=== PATIENT | female | born 1985 | race Caucasian/White ===

== ENCOUNTER 2018-10-28 22:07 | Emergency (ER) | payer BC ==
[~2018-10-28] VITALS: Ht 165.1 cm; Wt 128.8 kg
[~2018-10-28 22:07] MED LIST: HYDR-3720 PO
--- OUTSIDE RECORDS SUMMARY | 2018-10-28 22:12 | XMS REPORT | Clinical Summary ---
Author Author [facility] Organization [facility] Address Unknown Phone Unavailable Care Team Providers Care Wire Straightener Name Role Phone TroyXiomara NELL PCP Source Comments Some departments are not documenting in the electronic medical record. If you d o not see the information that you expected, contact [facility] Information [facility] Information Management department at [phone] for further assistan ce in locating additional records.[facility] Allergies Comments Active Allergy Reactions Severity Noted Date Zolpidem VOMITING, High 12/31/2016 DIZZINESS, HALLUCINATION S Oxycodone-Acetaminophen VOMITING, High 12/31/2016 DIZZINESS, HALLUCINATION S Medications End Date Status Medication Sig Dispensed Refills Start Date Active naproxen (NAPROSYN) 500 Take 1 tablet 60 tablet 4 mg tablet by mouth 7 twice daily with meals. Take with food. Active diclofenac(+) (VOLTAREN) Apply 4 g 300 g 4 1 % topical gel topically to 7 affected area three times daily. Active metFORMIN (GLUCOPHAGE) Take 500 mg 0 500 mg tablet by mouth twice daily with meals. Active dulaglutide (TRULICITY) Inject 0.75 0 0.75 mg/0.5 mL injection mg under the pen skin every 7 days. Active ascorbate calcium Take by 0 (VITAMIN C PO) mouth. Active diclofenac (VOLTAREN) 1 % Apply four g 300 g 3 topical gel topically to 9 affected area four times daily. Active HYDROcodone/acetaminophen Take one 60 tablet 0 (NORCO) 5/325 mg tablet tablet by 9 mouth every 12 hours as needed for Pain Max 2 tablets daily 10/06/2018 Discontinued amoxicillin (AMOXIL) 500 Take 500 mg 0 mg capsule by mouth every 8 hours. Active Problems Problem Noted Date Pars defect of lumbar spine 06/17/2017 Chronic midline low back pain 06/17/2017 Encounters Care Team Description Date Type Specialty Rambo Du MD Cervical spondylosis without myelopathy (Primary Dx); Cervical pain; Spondylosis of lumbosacral region without myelopathy or radiculopathy 10/20/2018 Procedure visit Anesthesia Pain Rambo Du MD 10/20/2018 Hospital Radiology Encounter Rambo Du MD Post Procedure 10/08/2018 Telephone Anesthesia Pain Rambo Du MD Cervical spondylosis without myelopathy (Primary Dx); Spondylosis of lumbosacral region without myelopathy or radiculopathy 10/06/2018 Procedure visit Anesthesia Pain Rambo Du MD 10/06/2018 Hospital Radiology Encounter Rambo Du MD Canceled (Patient-Personal) 09/22/2018 Hospital Radiology Encounter Rambo Du MD Cervical spondylosis without myelopathy (Primary Dx); Spondylosis of lumbosacral region without myelopathy or radiculopathy 08/26/2018 Office Visit Anesthesia Pain from Last 3 Months Family History Medical History Relation Name Comments Heart Disease Brother Thyroid Disease Brother Heart Disease Father Hypertension Father Kidney Failure Father Stroke Father Cancer Mother Heart Disease Mother Hypertension Mother Neuropathy Mother Stroke Mother Heart Disease Sister Relation Name Status Comments Brother Alive Daughter Alive Daughter Alive Father Alive Mother Alive Sister Alive Sister Alive Social History Date Tobacco Use Types Packs/Day Years Used Never Smoker Smokeless Tobacco: Never Used Drinks/Week oz/Week Comments Alcohol Use Yes Sex Assigned at Date Recorded Not on file Industry Job Start Date Occupation Not on file Not on file Not on file Travel End Travel History Travel Start No recent travel history available. Last Filed Vital Signs Reading Time Taken Comments Vital Sign 152/86 10/20/2018 12:12 PM CDT Blood Pressure 56 10/20/2018 10:47 AM CDT Pulse 36.7 C (98 F) 10/20/2018 10:47 AM CDT Temperature 16 10/20/2018 10:47 AM CDT Respiratory Rate 98% 10/20/2018 12:12 PM CDT Oxygen Saturation - - Inhaled Oxygen Concentration 127 kg (280 lb) 10/06/2018 9:32 AM CDT Weight 165.1 cm (5' 5") 10/06/2018 9:32 AM CDT Height 46.59 10/06/2018 9:32 AM CDT Body Mass Index Plan of Treatment Health Maintenance Due Date Last Done Comments PHYSICAL (COMPREHENSIVE) 1994 EXAM HIV SCREENING 2002 DTAP/TDAP VACCINES (1 - 2005 Tdap) CERVICAL CANCER SCREENING 2017 INFLUENZA VACCINE 02/01/2019 Procedures Comments Procedure Name Priority Date/Time Associated Diagnosis FLUORO GUIDANCE FOR SPINE Routine 10/20/2018 Cervical neuralgia INJ RAD 11:49 AM CDT FL RPB BILATERAL MACHINE REPAIRER MAINTENANCE Routine 10/20/2018 Cervical spondylosis REVIEW 10:45 AM CDT without myelopathy Cervical pain Spondylosis of lumbosacral region without myelopathy or radiculopathy FL NJX DX/THER AGT PVRT Routine 10/20/2018 Cervical spondylosis FACET JT CRV/THRC 3+ 10:45 AM CDT without myelopathy LEVEL Cervical pain Spondylosis of lumbosacral region without myelopathy or radiculopathy FL NJX DX/THER AGT PVRT Routine 10/20/2018 Cervical spondylosis FACET JT CRV/THRC 2ND 10:45 AM CDT without myelopathy LEVEL Cervical pain Spondylosis of lumbosacral region without myelopathy or radiculopathy FL NJX DX/THER AGT PVRT Routine 10/20/2018 Cervical spondylosis FACET JT CRV/THRC 1 LEVEL 10:45 AM CDT without myelopathy Cervical pain Spondylosis of lumbosacral region without myelopathy or radiculopathy FLUORO GUIDANCE FOR SPINE Routine 10/06/2018 Cervical pain INJ RAD 10:39 AM CDT FL RPB BILATERAL MACHINE REPAIRER MAINTENANCE Routine 10/06/2018 Cervical spondylosis REVIEW 9:30 AM CDT without myelopathy Spondylosis of lumbosacral region without myelopathy or radiculopathy FL NJX DX/THER AGT PVRT Routine 10/06/2018 Cervical spondylosis FACET JT CRV/THRC 2ND 9:30 AM CDT without myelopathy LEVEL Spondylosis of lumbosacral region without myelopathy or radiculopathy FL NJX DX/THER AGT PVRT Routine 10/06/2018 Cervical spondylosis FACET JT CRV/THRC 1 LEVEL 9:30 AM CDT without myelopathy Spondylosis of lumbosacral region without myelopathy or radiculopathy from Last 3 Months Results * FLUORO GUIDANCE FOR SPINE INJ RAD (10/20/2018 11:49 AM CDT) Only the most recent of 2 results within the time period is included. Specimen Narrative Performed At This order has been auto finalized and does not contain a result. [facility] Performing Organization Address City/State/Zipcode Phone Number [facility] * MBB/Facet CRV/THRC (10/20/2018 10:45 AM CDT) Narrative Performed At Rambo Du MD 10/21/2018 12:44 PM OTHER OUTSIDE LAB MBB/Facet CRV/THRC Procedure: medial branch block Laterality: bilateral Location: cervical - C4-5, C6-7 and C5-6 Consent: Consent obtained: written Consent given by: patient [place] Protocol: Relevant documents: relevant documents present and verified Test results: test results available and properly labeled Imaging studies: imaging studies available Required items: required blood products, implants, devices, and special equipment available Site marked: the operative site was marked Patient identity confirmed: Patient identify confirmed verbally with patient. Time out: Immediately prior to procedure a "time out" was called to verify the correct patient, procedure, equipment, academic support specialist and site/side marked as required Procedures Details: Prep: chlorhexidine Estimated Blood Loss: minimal Specimens: none Number of Levels: 3 Guidance: fluoroscopy Needle size: 25 G Injection procedure: Negative aspiration for blood Patient tolerance: Patient tolerated the procedure well with no immediate complications. Pressure was applied, and hemostasis was accomplished. Outcome: Pain improved Comments: Bupivacaine .25% 1 ml was injected at each location Performing Organization Address City/State/Zipcode Phone Number OTHER OUTSIDE LAB * MBB/Facet CRV/THRC (10/06/2018 9:30 AM CDT) Narrative Performed At Rambo Du MD 10/06/20181:24 PM OTHER OUTSIDE LAB MBB/Facet CRV/THRC Procedure: medial branch block Laterality: bilateral Location: cervical - C4-5, C5-6 and C6-7 Consent: Consent obtained: written Consent given by: patient [place] Protocol: Relevant documents: relevant documents present and verified Test results: test results available and properly labeled Imaging studies: imaging studies available Required items: required blood products, implants, devices, and special equipment available Site marked: the operative site was marked Patient identity confirmed: Patient identify confirmed verbally with patient. Time out: Immediately prior to procedure a "time out" was called to verify the correct patient, procedure, equipment, academic support specialist and site/side marked as required Procedures Details: Prep: chlorhexidine Estimated Blood Loss: minimal Specimens: none Number of Levels: 2 Guidance: fluoroscopy Needle size: 25 G Injection procedure: Negative aspiration for blood Patient tolerance: Patient tolerated the procedure well with no immediate complications. Pressure was applied, and hemostasis was accomplished. Outcome: Pain improved Comments: Bupivacaine .25% 1 ml was injected at each location Performing Organization Address City/State/Zipcode Phone Number OTHER OUTSIDE LAB from Last 3 Months Insurance Type Payer Benefit Subscriber ID Effective Phone Address Plan / Dates Group PPO BCBS BCBS xxxxxxxxxxxx 2015-P OUT OF resent [facility] PPO BCBS [place] xxxxxxxxxxxx 2016-P [facility] CARE resent BLUE Advance Directives Patient Gas Well Pumper Explanation Type Date Recorded Advance 12/31/2016 2:19 PM Directive/DPOA
--- OUTSIDE RECORDS SUMMARY | 2018-10-28 22:12 | XMS REPORT | Encounter Summary ---
Author Author [facility] Organization [facility] Address Unknown Phone Unavailable Care Team Providers Care Shade Hanger Name Role Phone Xiomara Simmons NELL PCP Encounter Details Care Team Description Date Type Department Rambo Du MD [address] [place], [place] [id number] 10/20/2018 Hospital [facility] Encounter Health System [address] [address] Social History Date Tobacco Use Types Packs/Day Years Used Never Smoker Smokeless Tobacco: Never Used Drinks/Week oz/Week Comments Alcohol Use Yes Sex Assigned at Date Recorded Not on file Industry Job Start Date Occupation Not on file Not on file Not on file Travel End Travel History Travel Start No recent travel history available. documented as of this encounter Functional Status Date of Assessment Functional Status Response 10/20/2018 Does the patient have a hearing impairment: No 10/20/2018 Does the patient have a visual impairment: Yes 10/20/2018 Does the patient have impaired ambulation: No 10/20/2018 Does the patient have an activity of daily living No (ADL) impairment: 10/20/2018 Does the patient have an instrumental activity of No daily living (IADL) impairment: Date of Assessment Cognitive Status Response 10/20/2018 Does the patient have a cognitive impairment: No documented as of this encounter Medications at Time of Discharge Start Date End Date Medication Sig Dispensed Refills ascorbate calcium Take by 0 (VITAMIN C PO) mouth. 06/28/2018 diclofenac (VOLTAREN) 1 % Apply four g 300 g 3 topical gel topically to affected area four times daily. 03/10/2017 diclofenac(+) (VOLTAREN) Apply 4 g 300 g 4 1 % topical gel topically to affected area three times daily. dulaglutide (TRULICITY) Inject 0.75 0 0.75 mg/0.5 mL injection mg under the pen skin every 7 days. 08/26/2018 HYDROcodone/acetaminophen Take one 60 tablet 0 (NORCO) 5/325 mg tablet tablet by mouth every 12 hours as needed for Pain Max 2 tablets daily metFORMIN (GLUCOPHAGE) Take 500 mg 0 500 mg tablet by mouth twice daily with meals. 03/10/2017 naproxen (NAPROSYN) 500 Take 1 tablet 60 tablet 4 mg tablet by mouth twice daily with meals. Take with food. documented as of this encounter Plan of Treatment Not on filedocumented as of this encounter Procedures Comments Procedure Name Priority Date/Time Associated Diagnosis FLUORO GUIDANCE FOR SPINE Routine 10/20/2018 Cervical neuralgia INJ RAD 11:49 AM CDT documented in this encounter Results * FLUORO GUIDANCE FOR SPINE INJ RAD (10/20/2018 11:49 AM CDT) Specimen Narrative Performed At This order has been auto finalized and does not contain a result. [facility] Performing Organization Address City/State/Zipcode Phone Number [facility] documented in this encounter Visit Diagnoses Diagnosis Cervical neuralgia Brachial neuritis or radiculitis nos documented in this encounter
--- OUTSIDE RECORDS SUMMARY | 2018-10-28 22:13 | XMS REPORT | Encounter Summary ---
Author Author [facility] Organization [facility] Address Unknown Phone Unavailable Care Team Providers Care Nail Feeder Name Role Phone Madison Pantoja MD PCP Reason for Referral * Pain Authorization (Routine) Referred By Contact Referred To Contact Status Reason Specialty Diagnoses / Procedures Rambo Du MD [address] [place] [address] Bh Spn Pain Proc [address] [address] New Request Anesthesia Pain Diagnoses Spondylosis of lumbosacral region without myelopathy or radiculopathy Lumbar radicular pain Degeneration of lumbar or lumbosacral intervertebral disc P rocedures [facility] SPINE INJECT INTERLAM CRV/THRC Reason for Visit * Reason Comments Pain NECK AND LEFT LEG Pain Pain Encounter Details Care Team Description Date Type Department Rambo Du MD [address] [place] [address] [phone] Spondylosis of lumbosacral region without myelopathy or radiculopathy (Primary Dx); Lumbar radicular pain; Degeneration of lumbar or lumbosacral intervertebral disc 06/28/2018 Office Visit [facility] [address] [id number] Social History Date Tobacco Use Types Packs/Day Years Used Never Smoker Smokeless Tobacco: Never Used Drinks/Week oz/Week Comments Alcohol Use Yes Sex Assigned at Date Recorded Not on file Industry Job Start Date Occupation Not on file Not on file Not on file Travel End Travel History Travel Start No recent travel history available. documented as of this encounter Last Filed Vital Signs Reading Time Taken Comments Vital Sign 147/95 06/28/2018 3:44 PM SEXUAL ASSAULT COUNSELOR Blood Pressure 99 06/28/2018 3:44 PM SEXUAL ASSAULT COUNSELOR Pulse - - Temperature - - Respiratory Rate - - Oxygen Saturation - - Inhaled Oxygen Concentration 129.3 kg (285 lb) 06/28/2018 3:44 PM SEXUAL ASSAULT COUNSELOR Weight 165.1 cm (5' 5") 06/28/2018 3:44 PM SEXUAL ASSAULT COUNSELOR Height 47.43 06/28/2018 3:44 PM SEXUAL ASSAULT COUNSELOR Body Mass Index documented in this encounter Functional Status Date of Assessment Functional Status Response 06/28/2018 Does the patient have a hearing impairment: Yes 06/28/2018 Does the patient have a visual impairment: Yes 06/28/2018 Does the patient have impaired ambulation: Yes 06/28/2018 Does the patient have an activity of daily living No (ADL) impairment: 06/28/2018 Does the patient have an instrumental activity of No daily living (IADL) impairment: Date of Assessment Cognitive Status Response 06/28/2018 Does the patient have a cognitive impairment: No documented as of this encounter Patient Instructions * Patient Instructions* Ines Anthony RN - 06/28/2018 3:30 PM SEXUAL ASSAULT COUNSELOR It was nice to see you today. Thank you for choosing to visit our clinic. Your time is important and if you had to wait today, we do apologize. Our goal i s to run exactly on time; however, on occasion, we get behind in clinic due to u nexpected patient issues. Thank you for your patience. General Instructions: How to reach me: Please send a [facility] message to the Spine Center or leave a voicemail for Dr. Du's nurses, Alexis or Allyssa, at [phone]. How to get a medication refill: Please use the [facility] Refill request or cont act your pharmacy directly to request medication refills. Please allow 72 busine ss hours for request to be completed. How to receive your test results: If you have signed up for [facility], you will receive your test results and messages from me this way. Otherwise, you will get a phone call or letter. If you are expecting results and have not heard from my office within 2 weeks of your testing, please send a [employer] message or call my office. Scheduling: Our scheduling phone number is [phone]. Appointment Reminders on your cell phone: Make sure we have your cell phone n andrew, and Text [facility] to [phone]. Support for many chronic illnesses is available through [employer]: turnin [email or web address] or 984-061-6671. For questions on nights, weekends or holidays, call the Hand Zipper Trimmer at , and ask for the doctor cellular phone repairer for Anesthesia Pain Management. Again, thank you for coming in today. Epidural Steroid Injection: Your Experience For certain types of back or neck pain, your doctor may suggest an epidural inje ction.During this procedure, medicine is injected deep into your neck or back near your spine. The injection helps the doctor find the source of your pain. It can also help relieve your pain and sorenesseither temporarily or more perman ently. However, it can be associated with serious complications. The injectioncan be done inyour doctor's office, but it is sometimesdone i [facility] care system or surgery center. Youll be asked to fill out some forms, includ ing a consent form. You may also be examined. Before you agree to this procedure, ask these questions: Why do I need this procedure? Are there any alternatives? How many times have you done this procedure? What are the complications? When will I see the results? Will the drug in this injection interact with other medicines I am taking? If you don't feel comfortable asking these questions, ask a family member or fri end to come with you to ask them. The answers are critical to your health and sa fety. Getting ready for your treatment Before treatment, tell your doctor what medicines you take. This includes asp irin. Ask whether you should stop taking any of them before treatment. Tell your doctor if you are or allergic to any medicines. Follow any directions you are given for not eating or drinking before the pro cedure. If asked, bring X-rays, MRIs, or other tests with you to your treatment. During the procedure You may be given medicine to help you relax. You will lie on an exam table on yo ur stomach or side, or sit in a chair. Stay as still as you can. During your gulshan atment: The skin over the injection site is cleaned. A pain medicine (local anestheti c) numbs the skin. X-ray imaging (fluoroscopy) may be used to help your healthcare provider see where the injection needs to go. A contrast dye may be injected into the region to help get a better image. The epidural injection is given. It may contain a local anesthetic to numb t he region, medicines to ease inflammation (steroids), or both. Possible risks and complications Infection Spinal headaches Bleeding Nerve damage Spinal cord damage Prolonged increase in pain Other more serious complications have been reported. Talk to your doctor about y our risks. After the procedure Most often, you can go home shortly after the procedure, generally in about an h our. When the local anesthetic wears off, your neck may feel more sore than usua l. This is normal. Rest and put ice on the area for 20 minutes a few times durin g the first day. The steroids most often start to work within a few days. Ask yo ur provider when its OK to return to your job. When to call your healthcare provider Call your provider right away if you have: Fever Nausea Severe headaches Increased arm weakness or numbness Problems swallowing Severe increase in pain Date Last Reviewed: 08/02/201719994829-3813 [employer]. [address] [place] [address] 7. All rights reserved. This information is not intended as a substitute for pro fessional medical care. Always follow your healthcare professional's instruction s. AL ASSAULT COUNSELOR documented in this encounter Progress Notes * Rambo Du MD - 06/28/2018 3:30 PM SEXUAL ASSAULT COUNSELOR SPINE CENTER CLINIC NOTE SUBJECTIVE: Ms. Ivory presents in follow-up for ongoing care regarding back nelson n. Her main complaint is pain at the cervicothoracic junction in the periscapul ar region and she describes it as intermittently sharp and dull. Her lumbar nelson n is much improved since undergoing radiofrequency ablation. Walking standing b ending exacerbate the pain and pain is improved with rest. Review of Systems Constitutional: Negative. HENT: Positive for dental problem, ear pain and hearing loss. Eyes: Negative. Respiratory: Positive for chest tightness. Cardiovascular: Negative. Gastrointestinal: Positive for abdominal pain. Endocrine: Negative. Genitourinary: Negative. Musculoskeletal: Positive for back pain and neck pain. Skin: Negative. Allergic/Immunologic: Negative. Neurological: Negative. Hematological: Negative. Psychiatric/Behavioral: Negative. All other systems reviewed and are negative. Current Outpatient Medications: amoxicillin (AMOXIL) 500 mg capsule, Take 500 mg by mouth every 8 hours., D isp: , Rfl: ascorbate calcium (VITAMIN C PO), Take by mouth., Disp: , Rfl: diclofenac (VOLTAREN) 1 % topical gel, Apply four g topically to affected a christine four times daily., Disp: 300 g, Rfl: 3 diclofenac(+) (VOLTAREN) 1 % topical gel, Apply 4 g topically to affected a christine three times daily., Disp: 300 g, Rfl: 4 dulaglutide (TRULICITY) 0.75 mg/0.5 mL injection pen, Inject 0.75 mg under the skin every 7 days., Disp: , Rfl: HYDROcodone/acetaminophen (NORCO) 5/325 mg tablet, Take one tablet by mouth every 12 hours as needed for Pain Max 2 tablets daily, Disp: 60 tablet, Rfl: 0 metFORMIN (GLUCOPHAGE) 500 mg tablet, Take 500 mg by mouth twice daily with meals., Disp: , Rfl: naproxen (NAPROSYN) 500 mg tablet, Take 1 tablet by mouth twice daily with meals. Take with food., Disp: 60 tablet, Rfl: 4 Allergies Allergen Reactions Ambien [Zolpidem] VOMITING, DIZZINESS and HALLUCINATIONS Percocet [Oxycodone-Acetaminophen] VOMITING, DIZZINESS and HALLUCINATIONS Physical Exam Vitals: 06/28/18 1544 BP: (!) 147/95 Pulse: 99 Weight: 129.3 kg (285 lb) Height: 165.1 cm (65") Oswestry Total Score:: 14 Pain Score: Six Body mass index is 47.43 kg/m. General: Alert and oriented, very pleasant female. HEENT showed extraocular muscles were intact and no other abnormalities. Unlabored breathing. Regular rate and rhythm on CV exam. 5/5 strength in bilateral upper and lower extremities. Sensation is intact to light touch and equal in the upper and lower extremities. There is bilateral cervico-thoracic tenderness to palpation IMPRESSION: 1. Spondylosis of lumbosacral region without myelopathy or radiculopathy 2. Lumbar radicular pain 3. Degeneration of lumbar or lumbosacral intervertebral disc PLAN: Ms. Ivory will trial child care attendant school and if pain is not improved we kendell l consider a epidural steroid injection in the upper thoracic region. AL ASSAULT COUNSELOR documented in this encounter Plan of Treatment Order Schedule Name Type Priority Associated Diagnoses 2 Occurrences starting 06/28/2018 until 09/25/2018 [facility] SPINE INJECT Procedures Routine Spondylosis of INTERLAM CRV/THRC lumbosacral region without myelopathy or radiculopathy Lumbar radicular pain Degeneration of lumbar or lumbosacral intervertebral disc documented as of this encounter Visit Diagnoses Diagnosis Spondylosis of lumbosacral region without myelopathy or radiculopathy - Primary Lumbosacral spondylosis without myelopathy Lumbar radicular pain Thoracic or lumbosacral neuritis or radiculitis, unspecified Degeneration of lumbar or lumbosacral intervertebral disc documented in this encounter
--- OUTSIDE RECORDS SUMMARY | 2018-10-28 22:13 | XMS REPORT | Encounter Summary ---
Author Author [facility] Organization [facility] Address Unknown Phone Unavailable Care Team Providers Care Cnc Operator Name Role Phone Xiomara Simmons NELL PCP Reason for Visit * Reason Comments Post Procedure Encounter Details Care Team Description Date Type Department Rambo Du MD [address] [place], [place] [id number] Post Procedure 10/08/2018 Telephone [facility] [address] [id number] Social History Date Tobacco Use Types Packs/Day [...] Status Date of Assessment Functional Status Response 10/06/2018 Does the patient have a hearing impairment: No 10/06/2018 Does the patient have a visual impairment: Yes 10/06/2018 Does the patient have impaired ambulation: No 10/06/2018 Does the patient have an activity of daily living No (ADL) impairment: 08/26/2018 Does the patient have an instrumental activity of No daily living (IADL) impairment: Date of Assessment Cognitive Status Response 10/06/2018 Does the patient have a cognitive impairment: No documented as of this encounter Miscellaneous Notes * Telephone Encounter - Alexis Natarajan RN - 10/08/2018 9:22 AM CDT mbb 6.5.19 OFFERED MORE THAN 80% relief from pain for over 4 hr MBB #2 scheduled documented in this encounter Plan of Treatment Not on filedocumented as of this encounter Visit Diagnoses Not on filedocumented in this encounter
--- OUTSIDE RECORDS SUMMARY | 2018-10-28 22:13 | XMS REPORT | Encounter Summary ---
Author Author [facility] Organization [facility] Address Unknown Phone Unavailable Care Team Providers Care Online Journalist Name Role Phone EveliosangmiguelXiomara NELL PCP Reason for Referral * Pain Authorization (Routine) Referred By Contact Referred To Contact Status Reason Specialty Diagnoses / Procedures Rambo Du MD [address] [place] [address] [facility] [address] [address] No Auth Needed Anesthesia Pain Diagnoses Cervical spondylosis without myelopathy Spondylosis of lumbosacral region without myelopathy or radiculopathy P rocedures [facility] AMB SPINE INJECT PVRT FACET MBB JT CRV/THOR Reason for Visit * Reason Comments Pain * Pain Authorization (Routine) Referred By Contact Referred To Contact Status Reason Specialty Diagnoses / Procedures Rambo Du MD [address] [place] [address] [facility] Proc [address] [address] No Auth Needed Anesthesia Pain Diagnoses Cervical spondylosis without myelopathy Spondylosis of lumbosacral region without myelopathy or radiculopathy P rocedures [facility] AMB SPINE INJECT PVRT FACET MBB JT CRV/THOR Encounter Details Care Team Description Date Type Department Rambo Du MD 4000 [facility] [place] [address] [phone] Cervical spondylosis without myelopathy (Primary Dx); Spondylosis of lumbosacral region without myelopathy or radiculopathy 10/06/2018 Procedure visit [facility] [address] [address] Social History Date Tobacco Use Types Packs/Day [...] Signs Reading Time Taken Comments Vital Sign 157/100 10/06/2018 11:02 AM CDT Blood Pressure 94 10/06/2018 9:32 AM CDT Pulse 36.6 C (97.8 F) 10/06/2018 9:32 AM CDT Temperature 16 10/06/2018 9:32 AM CDT Respiratory Rate 97% 10/06/2018 11:02 AM CDT Oxygen Saturation - - Inhaled Oxygen Concentration 127 kg (280 lb) 10/06/2018 9:32 AM CDT Weight 165.1 cm (5' 5") 10/06/2018 9:32 AM CDT Height 46.59 10/06/2018 9:32 AM CDT Body Mass Index documented in this encounter [...] this encounter Patient Instructions * Patient Instructions* Virginia Rosales RN - 10/06/2018 9:30 AM CDT Discharge Instructions for Medial Branch Block Important information following your procedure today: You may drive today This injection is for diagnostic purposes, it is a test. Only short term results are expected. 1. Though the procedure is generally safe and complications are rare, we do ask that you be aware of any of the following: ? Any swelling, persistent redness, new bleeding, or drainage from the site of t he injection. ? You should not experience a severe headache. ? You should not run a fever over 101 F. ? New onset of sharp, severe back & or neck pain. ? New onset of upper or lower extremity numbness or weakness. ? New difficulty controlling bowel or bladder function after the injection. ? New shortness of breath. If any of these occur, please call to report this occurrence to a nurse at . If you are calling after 4:00 p.m. or on weekends or holidays please ca [phone] and ask to have the resident physician director translational for the physician paged or go to your local emergency room. 2. You may experience soreness at the injection site. Ice can be applied at 20 m inute intervals. Avoid application of direct heat, hot showers or hot tubs today . 3. Patients taking a daily blood thinner can resume their regular dose this even ing. 4. It is important that you take all medications ordered by your pain physician. Taking medication as ordered is an important part of your pain care plan. If you cannot continue the medication plan, please notify the physician. 5. Remain active today. Do the activities that would normally cause you pain. 6. It is important for you to keep track of the results of this test on paper. ? Did you get relief? ? Percentage of relief? ? How long did it last? Call back to report the results to a nurse on THURSDAY at [phone] . Use not es that you kept when giving your report. You may have to leave a message and a nurse will contact you to help you determine if you are a candidate for the Radi ofrequency Ablation Procedure. The following medications were used: Lidocaine and Bupivicaine PAIN DIARY Please report pain on 0-10 scale for each hour listed following discharge. (0=N o pain; 5=Moderate pain; 10=Worst pain of your life) TIME DAY OF PROCEDURE LOCATION OF PAIN Pain Level Prior to Procedure 9:00 AM 10:00 11:00 12:00 (NOON) 1:00 PM 2:00 3:00 4:00 5:00 6:00 7:00 8:00 9:00 10:00 11:00 PM 12:00 AM (MIDNIGHT) If you are unable to keep your upcoming appointment, please notify the Spine [address] dye house wheel operator at [phone] at least 24 hours in advance. documented in this encounter Progress Notes * Brigette Bernard RN - 10/06/2018 9:30 AM CDT Pain Procedure Plan Of Care Risk of injury related to procedure Patient identification, allergies verified, fall precautions implemented Risk of injury and impaired skin integrity Positioning devices applied as appropriate for procedure, patient transported wi staff assistance Management of Pain Pain assessment completed on arrival, PAR scoring following procedure and at dis charge, sedation administered as ordered, patient positioned for comfort Risk of anxiety related to procedure and disease process Patient education on procedure and expectations, provide coping support to patie nt, provide relaxation techniques Outcomes: The patient is free of injury during and following their procedure. Skin is intact and free of bruising. The patients pain is managed during their stay. Alleviation of patient anxiety exhibited. * Rambo Du MD - 10/06/2018 9:30 AM CDT [facility]ENTER INTERVENTIONAL PAIN PROCEDURE HISTORY AND PHYSICAL Chief Complaint Patient presents with Neck - Pain HISTORY OF PRESENT ILLNESS: Axial neck pain Worse with head movements, especially lateral rotation Makes it hard to work at her computer Minimal radiation Medical History: Diagnosis Date Essential hypertension, benign Joint pain digenarative disk disease Nausea Surgical History: Procedure Laterality Date HX HERNIA REPAIR 2015 SECTION 2011, 2014 X2 CHOLECYSTECTOMY HX TONSILLECTOMY family history includes Cancer in her mother; Heart Disease in her brother, fath er, mother, and sister; Hypertension in her father and mother; Kidney Failure in her father; Neuropathy in her mother; Stroke in her father and mother; Thyroid Disease in her brother. Social History Socioeconomic History Marital status: Spouse name: Not on file Number of children: Not on file Years of education: Not on file Highest education level: Not on file Occupational History Not on file Tobacco Use Smoking status: Never Smoker Smokeless tobacco: Never Used Substance and Sexual Activity Alcohol use: Yes Drug use: No Sexual activity: Not on file Other Topics Concern Not on file Social History Narrative Not on file Allergies Allergen Reactions Ambien [Zolpidem] VOMITING, DIZZINESS and HALLUCINATIONS Percocet [Oxycodone-Acetaminophen] VOMITING, DIZZINESS and HALLUCINATIONS Vitals: 10/06/18 0932 Pulse: 94 SpO2: 99% Weight: 127 kg (280 lb) Height: 165.1 cm (65") REVIEW OF SYSTEMS: 10 point ROS obtained and negative except neck pain PHYSICAL EXAM: General: Alert, cooperative, no distress Head: Normocephalic, atraumatic Lungs: Unlabored respirations Heart: Well perfused Abdomen: Non-distended Musculoskeletal: Moves all extremities, ttp cervical spine Neurological: Grossly intact IMPRESSION: 1. Cervical spondylosis without myelopathy PLAN: Other bilat C4-7 MBBs I was present for garcia elements of the history and physical and agree with the ab ove note. Thank you for the opportunity to participate in the care of Jennifer Rodas, please do not hesitate to contact me with questions. documented in this encounter Procedure Notes * Rambo Du MD - 10/06/2018 9:30 AM CDT Associated Order(s): MBB/Facet CRV/THRC Post-Procedure Diagnose(s): Cervical spondylosis without myelopathy; Spondylosis of lumbosacral region without myelopathy or radiculopathy Attending Surgeon: Rambo Du MD Anesthesia: Local Pre-Procedure Diagnosis: 1. Cervical spondylosis without myelopathy 2. Spondylosis of lumbosacral region without myelopathy or radiculopathy Post-Procedure Diagnosis: 1. Cervical spondylosis without myelopathy 2. Spondylosis of lumbosacral region without myelopathy or radiculopathy MBB/Facet CRV/THRC Procedure: medial branch block Laterality: bilateral Location: cervical - C4-5, C5-6 and C6-7 Consent: Consent obtained: written Consent given by: patient [place] Protocol: Relevant documents: relevant documents present and verified Test results: test results available and properly labeled Imaging studies: imaging studies available Required items: required blood products, implants, devices, and special equipmen t available Site marked: the operative site was marked Patient identity confirmed: Patient identify confirmed verbally with patient. Time out: Immediately prior to procedure a "time out" was called to verify the c orrect patient, procedure, equipment, support teacher and site/side marked as requ ired Procedures Details: Prep: chlorhexidine Estimated Blood Loss: minimal Specimens: none Number of Levels: 2 Guidance: fluoroscopy Needle size: 25 G Injection procedure: Negative aspiration for blood Patient tolerance: Patient tolerated the procedure well with no immediate compli cations. Pressure was applied, and hemostasis was accomplished. Outcome: Pain improved Comments: Bupivacaine .25% 1 ml was injected at each location Estimated blood loss: none or minimal Specimens: none Patient tolerated the procedure well with no immediate complications. Pressure w as applied, and hemostasis was accomplished. documented in this encounter Plan of Treatment Not on filedocumented as of this encounter Procedures Comments Procedure Name Priority Date/Time Associated Diagnosis AZ RPB BILATERAL HOSE MAKER Routine 10/06/2018 Cervical spondylosis REVIEW 9:30 AM CDT without myelopathy Spondylosis of lumbosacral region without myelopathy or radiculopathy AZ NJX DX/THER AGT PVRT Routine 10/06/2018 Cervical spondylosis FACET JT CRV/THRC 2ND 9:30 AM CDT without myelopathy LEVEL Spondylosis of lumbosacral region without myelopathy or radiculopathy AZ NJX DX/THER AGT PVRT Routine 10/06/2018 Cervical spondylosis FACET JT CRV/THRC 1 LEVEL 9:30 AM CDT without myelopathy Spondylosis of lumbosacral region without myelopathy or radiculopathy documented in this encounter Results * MBB/Facet CRV/THRC (10/06/2018 9:30 AM CDT) Narrative Performed At Rambo Du MD 10/06/20181:24 PM OTHER OUTSIDE LAB MBB/Facet CRV/THRC Procedure: medial branch block Laterality: bilateral Location: cervical - C4-5, C5-6 and C6-7 Consent: Consent obtained: written Consent given by: patient [place] Protocol: Relevant documents: relevant documents present and [...] to verify the correct patient, procedure, equipment, support teacher and site/side marked as required Procedures Details: [...] Address City/State/Zipcode Phone Number OTHER OUTSIDE LAB documented in this encounter Visit Diagnoses Diagnosis Cervical spondylosis without myelopathy - Primary Spondylosis of lumbosacral region without myelopathy or radiculopathy Lumbosacral spondylosis without myelopathy documented in this encounter Administered Medications Action Date Dose Rate Site Medication Order MAR Action 10/06/2018 10:22 AM CDT 6 mL bupivacaine PF (MARCAINE) 0.25 % Given injection 6 mL 6 mL, Injection, ONCE, 1 dose, Thu10/06/18 at 1000 documented in this encounter
--- OUTSIDE RECORDS SUMMARY | 2018-10-28 22:13 | XMS REPORT | Encounter Summary ---
Author Author [facility] Organization [facility] Address Unknown Phone Unavailable Care Team Providers Care Bluing Oven Tender Name Role Phone TroyXiomara NELL PCP Reason for Referral * Pain Authorization (Routine) Referred By Contact Referred To Contact Status Reason Specialty Diagnoses / Procedures Rambo Du MD [address] [place] [address] [facility] Spn Pain Proc [address] [address] No Auth Needed Anesthesia Pain Diagnoses Cervical spondylosis without myelopathy Spondylosis of lumbosacral region without myelopathy or radiculopathy P rocedures [facility] AMB SPINE INJECT PVRT FACET MBB JT CRV/THOR Reason for Visit * Reason Comments Follow Up 2 month follow up Pain Encounter Details Care Team Description Date Type Department Rambo Du MD 4000 [place], [place] [id number] Cervical spondylosis without myelopathy (Primary Dx); Spondylosis of lumbosacral region without myelopathy or radiculopathy 08/26/2018 Office Visit [facility] [address] [id number] Social History Date Tobacco Use Types Packs/Day [...] Signs Reading Time Taken Comments Vital Sign 148/91 08/26/2018 9:54 AM CDT Blood Pressure 82 08/26/2018 9:54 AM CDT Pulse - - Temperature - - Respiratory Rate - - Oxygen Saturation - - Inhaled Oxygen Concentration 129.3 kg (285 lb) 08/26/2018 9:54 AM CDT Weight 165.1 cm (5' 5") 08/26/2018 9:54 AM CDT Height 47.43 08/26/2018 9:54 AM CDT Body Mass Index documented in this encounter Functional Status Date of Assessment Functional Status Response 08/26/2018 Does the patient have a hearing impairment: Yes 08/26/2018 Does the patient have a visual impairment: Yes 08/26/2018 Does the patient have impaired ambulation: Yes 08/26/2018 Does the patient have an activity of daily living No (ADL) impairment: 08/26/2018 Does the patient have an instrumental activity of No daily living (IADL) impairment: Date of Assessment Cognitive Status Response 08/26/2018 Does the patient have a cognitive impairment: No documented as of this encounter Patient Instructions * Patient Instructions* Jeronimo Otero - 08/26/2018 10:00 AM CDT It was nice to see you today. [...] How to reach me: Please send a Cross[facility]ader message to the Sp[facility] Center or leave a voicemail for my nurses, Alexis and Allyssa, at [phone]. How to get a medication refill: Please use the Crossfader Refill request or cont act your pharmacy directly to request medication refills. Please allow 72 busine ss hours for request to be completed. How to receive your test results: If you have signed up for Crossfader, you will receive your test results and messages from me this way. Otherwise, you will get a phone call or letter. If you are expecting results and have not heard from my office within 2 weeks of your testing, please send a Crossfader message or call my office. Scheduling: Our scheduling phone number is [phone]. Appointment Reminders on your cell phone: Make sure we have your cell phone n andrew, and Text [facility] to [phone]. Support for many chronic illnesses is available through [facility] [employer]: turnin [email or web address] or [phone]. For questions on nights, weekends or holidays, call the Slots Manager at , and ask for the doctor paedodontist for Anesthesia Pain Management. Again, thank you for coming in today. documented in this encounter Progress Notes * Rambo Du MD - 08/26/2018 10:00 AM CDT SPINE CENTER CLINIC NOTE SUBJECTIVE: Ms. Rodas presents in follow up for neck and low back pain. RFA in t he lumbar spine continues to help in reducing pain by more than 50%. She takes h ydrocodone 5/325 mg po sparingly and notes that it is helping. She is reporting pain in the cervical spine which is non radiating. The pain is worse with workin g at a computer or turning her head to the side. Review of Systems Constitutional: Negative. HENT: Negative. Eyes: Negative. Respiratory: Negative. Cardiovascular: Negative. Gastrointestinal: Negative. Endocrine: Negative. Genitourinary: Negative. Musculoskeletal: Positive for back pain. Skin: Negative. Allergic/Immunologic: Negative. Neurological: Negative. [...] VOMITING, DIZZINESS and HALLUCINATIONS Physical Exam Vitals: 08/26/18 0954 BP: (!) 148/91 Pulse: 82 Weight: 129.3 kg (285 lb) Height: 165.1 cm (65") Oswestry Total Score:: 24 Pain Score: Five Body mass index is 47.43 kg/m. General: Alert and oriented, very pleasant female. HEENT showed extraocular muscles were intact and no other abnormalities. Unlabored breathing. Regular rate and rhythm on CV exam. 5/5 strength in bilateral upper and lower extremities. Sensation is intact to light touch and equal in the upper and lower extremities. Bilateral posterior cervical facet tenderness, worse with extension and rotation IMPRESSION: No diagnosis found. PLAN: Will schedule a cervical medial branch block at bilateral C5-7 and refill hydrocodone as described above. documented in this encounter Plan of Treatment Order Schedule Name Type Priority Associated Diagnoses 2 Occurrences starting 08/26/2018 until 11/25/2018 [facility] AMB SPINE INJECT PVRT Procedures Routine Cervical spondylosis FACET MBB JT CRV/THOR without myelopathy Spondylosis of lumbosacral region without myelopathy or radiculopathy documented as of this encounter Visit Diagnoses Diagnosis Cervical spondylosis without myelopathy - Primary Spondylosis of lumbosacral region without myelopathy or radiculopathy Lumbosacral spondylosis without myelopathy documented in this encounter
--- OUTSIDE RECORDS SUMMARY | 2018-10-28 22:13 | XMS REPORT | Encounter Summary ---
Author Author [facility] Organization [facility] Address Unknown Phone Unavailable Care Team Providers Care Pan Washer Name Role Phone Xiomara Simmons NELL PCP Encounter Details Care Team Description Date Type Department Rambo Du MD [address] [place], [place] [id number] 10/06/2018 Hospital [facility] Encounter [facility] [address] [address] Social History Date Tobacco Use Types Packs/Day [...] Associated Diagnosis FLUORO GUIDANCE FOR SPINE Routine 10/06/2018 Cervical pain INJ RAD 10:39 AM CDT documented in this encounter Results * [facility] SPINE INJ RAD (10/06/2018 10:39 AM CDT) Specimen Narrative Performed At This order has been auto finalized and does not contain a result. EDIN HUA Performing Organization Address City/State/Zipcode Phone Number EDIN HUA documented in this encounter Visit Diagnoses Diagnosis Cervical pain Cervicalgia documented in this encounter
--- OUTSIDE RECORDS SUMMARY | 2018-10-28 22:13 | XMS REPORT | Encounter Summary ---
Author Author [facility] Organization [facility] Address Unknown Phone Unavailable Care Team Providers Care Cylinder Dyer Name Role Phone Xiomara Simmons NELL PCP Reason for Referral * Pain Authorization (Routine) Referred By Contact Referred To Contact Status Reason Specialty Diagnoses / Procedures Rambo Du MD [address] [place] [address] New Request Diagnoses Cervical spondylosis without myelopathy Cervical pain Spondylosis of lumbosacral region without myelopathy or radiculopathy P rocedures DESTRUCTION OF NERVE W/FLUORO CERVICAL/THORACIC * Pain Authorization (Routine) Referred By Contact Referred To Contact Status Reason Specialty Diagnoses / Procedures Rambo Du MD [address] [place] [address] [facility] [address] [address] No Auth Needed Anesthesia Pain Diagnoses Cervical spondylosis without myelopathy Spondylosis of lumbosacral region without myelopathy or radiculopathy P rocedures [facility] SP[facility] INJECT PVRT FACET MBB JT CRV/THOR Reason for Visit * Reason Comments Pain * Pain Authorization (Routine) Referred By Contact Referred To Contact Status Reason Specialty Diagnoses / Procedures Rambo Du MD [address] [place] [address] Bhg Spn Pain Proc [address] [address] No Auth Needed Anesthesia Pain Diagnoses Cervical spondylosis without myelopathy Spondylosis of lumbosacral region without myelopathy or radiculopathy P rocedures [facility] SPINE INJECT PVRT FACET MBB JT CRV/THOR Encounter Details Care Team Description Date Type Department Rambo Du MD [address] [place], [place] [id number] Cervical spondylosis without myelopathy (Primary Dx); Cervical pain; Spondylosis of lumbosacral region without myelopathy or radiculopathy 10/20/2018 Procedure visit [facility] [address] [id number] Social History Date Tobacco Use Types Packs/Day [...] Oxygen Saturation - - Inhaled Oxygen Concentration - - Weight - - Height - - Body Mass Index documented in this encounter [...] encounter Patient Instructions * Patient Instructions* Virginia Rosales, SUZI - 10/20/2018 10:45 AM CDT Discharge Instructions for Medial Branch [...] report this occurrence to a nurse at [phone]. If you are calling after 4:00 p.m. or on weekends or holidays please ca [phone] and ask to have the resident physician dehydrogenation converter helper for the physician paged or go to [...] report the results to a nurse on at [phone] . Use not es that you kept [...] your upcoming appointment, please notify the [facility] ter covering and lining supervisor at [phone] at least 24 hours in advance. What is Procedural Sedation? Procedural sedation is medicine given to help calm and relax you in order to com plete a test/procedure that may take a period of time, or otherwise be painful. These medications can help reduce anxiety and pain related to the procedure. Do I need Procedural Sedation? You will be screened to make sure sedation is appropriate based on your medical history and the procedure needing to be completed. Your physician will choose sedation medications based on your age, overall health status, and duration and/ or invasiveness of the procedure. Sedation medications may be given various ways By mouth (drink liquid or take a pill) Intranasal (a medication sprayed/injected to the nostril) Intramuscular (an injection into the muscle) IV (medication injected through an IV in your vein) How is Procedural Sedation different from General Anesthesia? Sedation is a continuum rather than clearly defined levels- meaning you can prog ress from one level of sedation to both a marketing communications manager or deeper level during the pro cedure. The goal of Procedural Sedation is that your pain is controlled, but you are abl e to breathe and protect your own airway. You may have limited memory of the pro cedure. However, you should be arousable throughout the procedure and able to ta lk with your nurse. During General Anesthesia you are completely unconscious and may require assista nce with your breathing and/or blood pressure during the procedure. Anesthesia providers will be involved in your care for this depth of sedation. Important information for the day of your Procedure Prior to your procedure: ? You should have no solid food for at least 8 hours. ? You can have clear liquids up until 2 hours before your procedure arrival time . (example: tea, apple juice, water, coffee- no milk or creamers) After your sedation, you will be monitored to ensure it is safe for you to go home. You must have a responsible adult with you upon your discharge from the [facility] to escort you home. A taxi, Uber, or bus can be your way home if you herlinda se, but the form setter/driver cannot be your responsible democrat. You may not drive yoursel f. What is Procedural Sedation? Procedural sedation is medicine given to help calm and relax you in order to com plete a test/procedure that may take a period of time, or otherwise be painful. These medications can help reduce anxiety and pain related to the procedure. Do I need Procedural Sedation? You will be screened to make sure sedation is appropriate based on your medical history and the procedure needing to be completed. Your physician will choose sedation medications based on your age, overall health status, and duration and/ or invasiveness of the procedure. Sedation medications may be given various ways By mouth (drink liquid or take a pill) Intranasal (a medication sprayed/injected to the nostril) Intramuscular (an injection into the muscle) IV (medication injected through an IV in your vein) How is Procedural Sedation different from General Anesthesia? Sedation is a continuum rather than clearly defined levels- meaning you can prog ress from one level of sedation to both a marketing communications manager or deeper level during the pro cedure. The goal of Procedural Sedation is that your pain is controlled, but you are abl e to breathe and protect your own airway. You may have limited memory of the pro cedure. However, you should be arousable throughout the procedure and able to ta lk with your nurse. During General Anesthesia you are completely unconscious and may require assista nce with your breathing and/or blood pressure during the procedure. Anesthesia providers will be involved in your care for this depth of sedation. Important information for the day of your Procedure Prior to your procedure: ? You should have no solid food for at least 8 hours. ? You can have clear liquids up until 2 hours before your procedure arrival time . (example: tea, apple juice, water, coffee- no milk or creamers) After your sedation, you will be monitored to ensure it is safe for you to go home. You must have a responsible adult with you upon your discharge from the [facility] to escort you home. A taxi, Uber, or bus can be your way home if you herlinda se, but the form setter/driver cannot be your responsible democrat. You may not drive yoursel f. documented in this encounter Progress Notes * Beatriz Valero RN - 10/20/2018 10:45 AM CDT Pain Procedure Plan Of Care Risk of injury related to procedure Patient identification, allergies verified, fall precautions implemented Risk of injury and impaired skin integrity Positioning devices applied as appropriate for procedure, patient transported [facility] staff assistance Management of Pain Pain assessment [...] stay. Alleviation of patient anxiety exhibited. * Eric Reece, - 10/20/2018 10:45 AM CDT [facility] INTERVENTIONAL PAIN PROCEDURE HISTORY AND PHYSICAL Chief Complaint Patient presents with Neck - Pain HISTORY OF PRESENT ILLNESS: Jennifer Rodas returns today for interventional pain procedure. The patient denies any recent fevers, chills, infection, antibiotics, bowel or bladder incon tinence, saddle anesthesia, bleeding issues, or recent blood thinning medication s other than as follows: mbb 6.5.19 OFFERED MORE THAN 80% relief from pain for over 4 hr Medical History: Diagnosis Date Essential hypertension, benign [...] Percocet [Oxycodone-Acetaminophen] VOMITING, DIZZINESS and HALLUCINATIONS Vitals: 10/20/18 1047 10/20/18 1048 BP: (!) 166/105 (!) 168/105 Pulse: 56 Resp: 16 Temp: 36.7 C (98 F) TempSrc: Oral SpO2: 97% REVIEW OF SYSTEMS: 10 point ROS obtained and negative except per HPI PHYSICAL EXAM: General: Patientappears stated age, in no acute distress HEENT: Normocephalic, atraumatic Cardiovascular: Well perfused Pulmonary: Respirations regular and unlabored Extremities: No cyanosis, clubbing, or edema Skin: No obvious rashes or lesions Psychiatric: Appropriate mood and affect Musculoskeletal: No atrophy Neurologic: Antigravity strength in all extremities Back: No obvious deformity IMPRESSION: 1. Cervical spondylosis without myelopathy 2. Cervical pain PLAN: Bilateral C4-C7 MBB#2 documented in this encounter Procedure Notes * Rambo Du MD - 10/20/2018 10:45 AM CDT Associated Order(s): MBB/Facet CRV/THRC Post-Procedure Diagnose(s): Cervical spondylosis without myelopathy; Cervical pa in; Spondylosis of lumbosacral region without myelopathy or radiculopathy Attending Surgeon: Rambo Du MD Anesthesia: Local Pre-Procedure Diagnosis: 1. Cervical spondylosis without myelopathy 2. Cervical pain 3. Spondylosis of lumbosacral region without myelopathy or radiculopathy Post-Procedure Diagnosis: 1. Cervical spondylosis without myelopathy 2. Cervical pain 3. Spondylosis of lumbosacral region without myelopathy or radiculopathy MBB/Facet CRV/THRC Procedure: medial branch block Laterality: bilateral Location: cervical - C4-5, C6-7 and C5-6 Consent: Consent obtained: written Consent given by: patient [place] Protocol: Relevant documents: relevant documents present and [...] verify the c orrect patient, procedure, equipment, air support operations operator and site/side marked as requ ired Procedures [...] Order Schedule Name Type Priority Associated Diagnoses Expected: 10/27/2018, Expires: 10/21/2019 DESTRUCTION OF NERVE Procedures Routine Cervical spondylosis W/FLUORO without myelopathy CERVICAL/THORACIC Cervical pain Spondylosis of lumbosacral region without myelopathy or radiculopathy documented as of this encounter Procedures Comments Procedure Name Priority Date/Time Associated Diagnosis MI HARINI BILATERAL COOKER HELPER Routine 10/20/2018 Cervical spondylosis REVIEW 10:45 AM CDT without myelopathy Cervical pain Spondylosis of lumbosacral region without myelopathy or radiculopathy MI NJX DX/THER AGT PVRT Routine 10/20/2018 Cervical spondylosis FACET JT CRV/THRC 3+ 10:45 AM CDT without myelopathy LEVEL Cervical pain Spondylosis of lumbosacral region without myelopathy or radiculopathy MI NJX DX/THER AGT PVRT Routine 10/20/2018 Cervical spondylosis FACET JT CRV/THRC 2ND 10:45 AM CDT without myelopathy LEVEL Cervical pain Spondylosis of lumbosacral region without myelopathy or radiculopathy MI NJX DX/THER AGT PVRT Routine 10/20/2018 Cervical spondylosis FACET JT CRV/THRC 1 LEVEL 10:45 AM CDT without myelopathy Cervical pain Spondylosis of lumbosacral region without myelopathy or radiculopathy documented in this encounter Results * MBB/Facet CRV/THRC (10/20/2018 10:45 AM CDT) Narrative Performed At Rambo Du MD 10/21/2018 12:44 PM OTHER OUTSIDE LAB MBB/Facet CRV/THRC Procedure: medial branch block Laterality: bilateral Location: cervical - C4-5, C6-7 and C5-6 Consent: Consent obtained: written Consent given by: patient [place] Protocol: Relevant documents: relevant documents present and [...] to verify the correct patient, procedure, equipment, air support operations operator and site/side marked as required Procedures Details: [...] Diagnosis Cervical spondylosis without myelopathy - Primary Cervical pain Cervicalgia Spondylosis of lumbosacral region without myelopathy or radiculopathy Lumbosacral spondylosis without myelopathy documented in this encounter Administered Medications Action Date Dose Rate Site Medication Order MAR Action 10/20/2018 11:43 AM CDT 3 mL bupivacaine PF (MARCAINE) 0.25 % Given injection 3 mL 3 mL, Injection, ONCE, 1 dose, Thu10/20/18 at 1100 documented in this encounter
--- OUTSIDE RECORDS SUMMARY | 2018-10-28 22:13 | XMS REPORT | Encounter Summary ---
Author Author [facility] Organization [facility] Address Unknown Phone Unavailable Care Team Providers Care Learning Developer Name Role Phone EvelioXiomara adams NELL PCP Encounter Details Care Team Description Date Type Department Doctor, Miscellaneous Encounter for therapeutic drug level monitoring 07/19/2018 [facility] [address] [address] Social History Date Tobacco Use Types Packs/Day [...] under the pen skin every 7 days. metFORMIN (GLUCOPHAGE) Take 500 mg 0 500 mg tablet by mouth twice daily with meals. 03/10/2017 naproxen (NAPROSYN) 500 Take 1 tablet 60 tablet 4 mg tablet by mouth twice daily with meals. Take with food. 10/06/2018 amoxicillin (AMOXIL) 500 Take 500 mg 0 mg capsule by mouth every 8 hours. 06/28/2018 08/26/2018 HYDROcodone/acetaminophen Take one 60 tablet 0 (NORCO) 5/325 mg tablet tablet by mouth every 12 hours as needed for Pain Max 2 tablets daily documented as of this encounter Plan of Treatment Not on filedocumented as of this encounter Procedures Comments Procedure Name Priority Date/Time Associated Diagnosis COMPREHENSIVE METABOLIC 07/19/2018 Nonspecific elevation of PANEL 3:45 PM CDT levels of transaminase and lactic acid dehydrogenase (LDH) documented in this encounter Results * COMPREHENSIVE METABOLIC PANEL (07/19/2018 3:45 PM CDT) Sodium 136 (L) 137 - 147 MMOL/L [facility] Potassium 4.1 3.5 - 5.1 MMOL/L [facility] Chloride 100 98 - 110 MMOL/L [facility] Glucose 177 (H) 70 - 100 MG/DL [facility] Blood Urea 13 7 - 25 MG/DL [facility] Nitrogen Creatinine 0.76 0.4 - 1.00 MG/DL [facility] Calcium 9.8 8.5 - 10.6 MG/DL [facility] Total Protein 7.1 6.0 - 8.0 G/DL [facility] Total Bilirubin 0.6 0.3 - 1.2 MG/DL [facility] Albumin 4.2 3.5 - 5.0 G/DL [facility] Alk Phosphatase 88 25 - 110 U/L [facility] AST (SGOT) 55 (H) 7 - 40 U/L [facility] CO2 30 21 - 30 MMOL/L [facility] ALT (SGPT) 67 (H) 7 - 56 U/L [facility] Anion Gap 6 3 - 12 [facility] eGFR Non >60 >60 mL/min [facility] Comment: Trinid[place] The eGFR is not validated for use in drug dosing adjustments.Continue to use estimated creatinine clearance per dosing reference text.Please contact the Clinical Pharmacist for questions. eGFR >60 >60 mL/min [facility] Trin[place] Comment: The eGFR is not validated for use in drug dosing adjustments.Continue to use estimated creatinine clearance per dosing reference text.Please contact the Clinical Pharmacist for questions. Specimen Performing Organization Address City/State/Zipcode Phone Number MAIN LAB [address] [place] [address] documented in this encounter Visit Diagnoses Diagnosis Nonspecific elevation of levels of transaminase and lactic acid dehydrogenase (LDH) Nonspecific elevation of levels of transaminase or lactic acid dehydrogenase (LDH) documented in this encounter
--- OUTSIDE RECORDS SUMMARY | 2018-10-28 22:13 | XMS REPORT | Encounter Summary ---
Author Author [facility] Organization [facility] Address Unknown Phone Unavailable Care Team Providers Care Transcribing Operators Supervisor Name Role Phone iXomara Simmons PCP Reason for Referral * Radiology Services (Routine) Referred By Contact Referred To Contact Status Reason Specialty Diagnoses / Procedures Xiomara Simmons ARNP [address] [place] [address] [place] [address] [address] No Auth Needed Radiology Diagnoses Encounter for therapeutic drug monitoring P rocedures CT ABD/PELV W CONTRAST * Radiology Services (Routine) Referred By Contact Referred To Contact Status Reason Specialty Diagnoses / Procedures Xiomara Simmons ARNP [address] [place] [address] [address] No Auth Needed Radiology Diagnoses Encounter for therapeutic drug monitoring P rocedures CT ABD/PELV W CONTRAST Reason for Visit * Radiology Services (Routine) Referred By Contact Referred To Contact Status Reason Specialty Diagnoses / Procedures Xiomara Simmons ARNP [address] [place] [address] [employer] [address] [place] [id number] No Auth Needed Radiology Diagnoses Encounter for therapeutic drug monitoring P rocedures CT ABD/PELV W CONTRAST Encounter Details Care Team Description Date Type Department Doctor, Candycellaneous 07/19/2018 [facility] [address] [address] Social History Date Tobacco Use Types Packs/Day [...] Comments Procedure Name Priority Date/Time Associated Diagnosis CT ABD/PELV W CONTRAST Routine 07/19/2018 Encounter for therapeutic 4:48 PM CDT drug monitoring POC CREATININE, RAD 07/19/2018 4:37 PM CDT documented in this encounter Results * CT ABD/PELV W CONTRAST (07/19/2018 4:48 PM CDT) Specimen Impressions Performed At 1. Essentially unremarkable CT scan of the abdomen and pelvis. [facility] RESULTS Approved by Kiran Khan M.D. on 07/20/2018 10:33 AM By my electronic signature, I attest that I have personally reviewed the images for this examination and formulated the interpretations and opinions expressed in this report Finalized by Delon Ford M.D. on 07/20/2018 10:52 AM. Dictated by Kiran Khan M.D. on 07/20/2018 10:02 AM. Narrative Performed At CT ABDOMEN AND PELVIS [facility] RESULTS Clinical Indication:Female, 33 years old. Encounter for therapeutic drug monitoring, chronic midline low back pain. Technique:Multiple contiguous axial images were obtained through the abdomen and pelvis following the administration of IV contrast material. Portal venous phase of postcontrast imaging was obtained. Post processing coronal and sagittal reconstruction images were made from the axial images. IV contrast: Omnipaque 350 Bowel contrast:None Comparison: None FINDINGS: Lower Thorax: Unremarkable. Liver and Biliary system: Mild hepatosplenomegaly commensurate with body habitus. No focal hepatic lesion identified. The portal vasculature is patent. Prior cholecystectomy. No biliary ductal dilatation. Spleen: Mild splenomegaly. Adrenal Glands and Kidneys: The adrenal glands and kidneys are unremarkable. Pancreas and Retroperitoneum: The pancreas is unremarkable. No retroperitoneal adenopathy. There are a few normal sized reactive retroperitoneal lymph nodes. Aorta and Major Vessels: The abdominal aorta is normal in caliber. Bowel, Mesentery and Peritoneal space: The large and small bowel loops are normal in caliber. Appendix is unremarkable. No mesenteric adenopathy or ascites. Mild colonic diverticulosis without evidence of diverticulitis. Pelvis: The urinary bladder is nondistended. The uterus is unremarkable. Normal sized cysts or follicles within both ovaries. No pelvic adenopathy. Abdominal wall and Osseous Structures: Pars defect involving L5. No aggressive osseous lesion. Procedure Note Interface, Radiant Results - 07/20/2018 10:[address] ABDOMEN AND PELVIS Clinical Indication: Female, 33 years old. Encounter for therapeutic drug monitoring, chronic midline low back pain. Technique: Multiple contiguous axial images were obtained through the abdomen and pelvis following the administration of IV contrast material. Portal venous phase of postcontrast imaging was obtained. Post processing coronal and sagittal reconstruction images were made from the axial images. IV contrast: Omnipaque 350 Bowel contrast: None Comparison: None FINDINGS: Lower Thorax: Unremarkable. Liver and Biliary system: Mild hepatosplenomegaly commensurate with body habitus. No focal hepatic lesion identified. The portal vasculature is patent. Prior cholecystectomy. No biliary ductal dilatation. Spleen: Mild splenomegaly. Adrenal Glands and Kidneys: The adrenal glands and kidneys are unremarkable. Pancreas and Retroperitoneum: The pancreas is unremarkable. No retroperitoneal adenopathy. There are a few normal sized reactive retroperitoneal lymph nodes. Aorta and Major Vessels: The abdominal aorta is normal in caliber. Bowel, Mesentery and Peritoneal space: The large and small bowel loops are normal in caliber. Appendix is unremarkable. No mesenteric adenopathy or ascites. Mild colonic diverticulosis without evidence of diverticulitis. Pelvis: The urinary bladder is nondistended. The uterus is unremarkable. Normal sized cysts or follicles within both ovaries. No pelvic adenopathy. Abdominal wall and Osseous Structures: Pars defect involving L5. No aggressive osseous lesion. IMPRESSION 1. Essentially unremarkable CT scan of the abdomen and pelvis. Approved by Kiran Khan M.D. on 07/20/2018 10:33 AM By my electronic signature, I attest that I have personally reviewed the images for this examination and formulated the interpretations and opinions expressed in this report Finalized by Delon Ford M.D. on 07/20/2018 10:52 AM. Dictated by Kiran Khan M.D. on 07/20/2018 10:02 AM. Performing Organization Address City/State/Zipcode Phone Number RAD RESULTS * POC CREATININE, RAD (07/19/2018 4:37 PM CDT) Creatinine, POC 0.5 0.4 - 1.00 MG/DL [facility] Specimen Performing Organization Address City/[facility] Phone Number [facility] LAB [address] [facility] [place] [address] documented in this encounter Visit Diagnoses Diagnosis Encounter for therapeutic drug monitoring documented in this encounter Administered Medications Action Date Dose Rate Site Medication Order MAR Action 07/19/2018 5:00 PM CDT 100 mL 2.5 mL/hr iohexol (OMNIPAQUE-350) 350 mg/mL Given injection 100 mL 100 mL, Intravenous, at 2.5 mL/hr, ONCE, 1 dose, Thu07/19/18 at 1700, NOTE: This is a HIGH ALERT Medication., 07/19/2018 5:00 PM CDT 50 mL 2 mL/hr sodium chloride PF 0.9% injection 50 mL Given 50 mL, Intravenous, at 2 mL/hr, ONCE, 1 dose, Thu07/19/18 at 1700, DO NOT SEND this medication unless it is requested. This med is usually available in floor stock., Intra-procedure (IR) documented in this encounter
--- OUTSIDE RECORDS SUMMARY | 2018-10-28 22:13 | XMS REPORT | Encounter Summary ---
Author Author [facility] Organization [facility] Address Unknown Phone Unavailable Care Team Providers Care Wooden Box Maker Name Role Phone EvelioXiomara adams NELL PCP Encounter Details Care Team Description Date Type Department Rambo Du MD [address] [facility] [place], [place] [id number] Canceled (Patient-Personal) 09/22/2018 Hospital [facility] Encounter [facility] [address] [address] Social History Date Tobacco Use Types Packs/Day [...] mg capsule by mouth every 8 hours. documented as of this encounter Plan of Treatment Not on filedocumented as of this encounter Visit Diagnoses Diagnosis Cervical pain Cervicalgia documented in this encounter
--- OUTSIDE RECORDS SUMMARY | 2018-10-28 22:14 | XMS REPORT ---
Author Author JEOVANNY STANFORD [facility] Address Unknown Phone Unavailable Care Team Providers Care Nurse Practitioner Manager Name Role Phone JEOVANNY STANFORD Unavailable Unavailable PROBLEMS Type Condition ICD9-CM Code [id number] Code Onset Dates Condition Status SNOMED Code Problem Achilles tendinitis, left leg M76.62 Feb, Active 028698006 Problem Primary insomnia F51.01 Aug, Active 0022186 Problem Cutaneous abscess of abdominal wall L02.211 Nov, Active 694843468 Problem Acute midline low back pain with bilateral sciatica M54.42 Nov, Active 78059451 Problem Plantar fasciitis, bilateral M72.2 Feb, Active 06725843 Problem Heel spur, right M77.31 Jan, Active 97422654 Problem Lumbosacral spondylolysis M43.07 Active 569383766 Problem Right lateral epicondylitis M77.11 Jul, Active [id number] Problem Lumbar radicular pain M54.16 Active 717109415 Problem History of gestational diabetes Z86.32 Feb, Active 504504666 Problem Elevated AST (SGOT) R74.0 Active 529754695 Problem Severe episode of recurrent major depressive disorder, without psychotic features F33.2 Feb, Active 05883061 Problem Diverticulosis K57.90 Active 066854494 Problem Daytime sleepiness R40.0 Nov, Active 750221403 Problem Lumbar degenerative disc disease M51.36 Active 17808929 Problem ADHD (attention deficit hyperactivity disorder) F90.9 14 Jun, 2016 Active 796269548 Problem Vitamin D deficiency E55.9 Active 74519943 Problem Type 2 diabetes mellitus with complication, without long-term current use of insulin E11.8 Active 45226390 ALLERGIES No Information ENCOUNTERS Encounter Location Date Diagnosis [facility] [address] [place] [address] Jul, Bacterial conjunctivitis of right eye H10.9 and Morbid obesity E66.01 [facility] [address] [place] [address] 06 Jul, 2018 Medication monitoring encounter Z51.81 [facility] [id number] [place] [phone] Jul, Type 2 diabetes mellitus with complication, without long-term current use of insulin E11.8 ; Medication monitoring encounter Z51.81 ; Lumbar radicular pain M54.16 ; Vitamin D deficiency E55.9 ; Elevated AST (SGOT) R74.0 and Morbid obesity E66.[address] [address] 18 Jun, [address] [address] Jun, BMI 45.0-49.9, adult Z68.42 ; Type 2 diabetes mellitus with complication, without long-term current use of insulin E11.8 ; Vitamin D deficiency E55.9 ; Elevated AST (SGOT) R74.0 and Morbid obesity E66.[address] [address] 05 Jun, 2018 Vitamin D deficiency E55.9 ; Elevated alanine aminotransferase (ALT) level R74.0 ; Elevated AST (SGOT) R74.0 and BMI 45.0-49.9, adult Z68.[address] [address] May, Fatigue R53.83 ; Thirst R63.8 ; Acute otitis media H66.90 ; Family history of diabetes mellitus (DM) Z83.3 and History of recurrent ear infection Z86.69 [place] [id number] [place] [phone] Apr, [place] [address] [place] [id number] [place] [phone] Apr, [place] [address] [place] [id number] [place] [phone] Apr, [place] [id number] [place] [phone] Aug, IMMUNIZATIONS No Known Immunizations SOCIAL HISTORY Never Assessed REASON FOR VISIT PLAN OF CARE VITAL SIGNS MEDICATIONS Medication Instructions Dosage Frequency Start Date End Date Duration Status Trulicity 0.75 MG/0.5ML Subcutaneous once weekly as directed 4 weeks Active RESULTS No Results PROCEDURES No Known procedures INSTRUCTIONS MEDICATIONS ADMINISTERED No Known Medications MEDICAL (GENERAL) HISTORY Type Description Date Medical History back pain Medical History hx left knee pain Medical History Unspecified high risk Medical History HX gestational diabetes Medical History right lateral epicondylitis Medical History low back pain Medical History acute bilateral sciatica Medical History bilateral plantar fasciitis Medical History Depression Medical History insomnia Medical History Cutaneous abscess of abdominal wall Surgical History cholecystectomy Surgical History umbilical hernia repair Surgical History tonsillectomy Surgical History c-sections x2
--- OUTSIDE RECORDS SUMMARY | 2018-10-28 22:14 | XMS REPORT | Continuity of Care Document ---
Author Organization Unknown Address Unknown Allergies There is no data. Medications There is no data. Problems Date Dx Coded Attending Type Code Diagnosis Diagnosed By 09/16/2015 JAISON AGUAYO MD, Ot M79.662 PAIN IN LEFT LOWER LEG 09/16/2015 JAISON AGUAYO MD, Ot Z53.21 PROC/TRTMT NOT CRD OUT D/T PT LV BEF SEE 09/17/2015 JAISON AGUAYO MD, Ot M79.662 PAIN IN LEFT LOWER LEG 09/17/2015 JAISON AGUAYO MD, Ot Z53.21 PROC/TRTMT NOT CRD OUT D/T PT LV BEF SEE 09/21/2015 JAISON AGUAYO MD, Ot M79.662 PAIN IN LEFT LOWER LEG 09/21/2015 JAISON AGUAYO MD, Ot Z53.21 PROC/TRTMT NOT CRD OUT D/T PT LV BEF SEE 07/03/2016 JAISON AGUAYO MD, Ot M79.662 PAIN IN LEFT LOWER LEG 07/03/2016 JAISON AGUAYO MD, Ot Z53.21 PROC/TRTMT NOT CRD OUT D/T PT LV BEF SEE Procedures There is no data. Results Test Result Range HEPATITIS PROFILE - 07/07/18 11:14 HEPATITIS A IGM NON-REACTIVE NON-REACTIVE HEPATITIS B SURFACE ANTIGEN NON-REACTIVE NON-REACTIVE HEPATITIS B CORE ANTIBODY (IGM) NON-REACTIVE NON-REACTIVE HEPATITIS C ANTIBODY NON-REACTIVE NON-REACTIVE SIGNAL TO CUT-OFF 0.01 <1.00 MICROALBUMIN/CREATININE RATIO, URINE - 07/07/18 11:14 CREATININE, RANDOM URINE 99 mg/dL 20-275 MICROALBUMIN 5.4 mg/dL See Note: MICROALBUMIN/CREATININE RATIO, RANDOM URINE 55 mcg/mg creat <30 Encounters ACCT No. Visit Date/Time Discharge Status Pt. Type Provider Facility Loc./Unit Complaint [id number] 10/15/2018 15:20:00 10/15/2018 23:59:59 CLS Outpatient [facility] [id number] 10/15/2018 15:20:00 Document Registration [id number] 07/07/2018 10:20:00 Document Registration [id number] 09/16/2015 20:58:00 09/16/2015 23:02:00 DIS Emergency OLIVIER ROWE, JAISON [facility] ER LEG/KNEE PAIN
--- NOTE | 2018-10-28 22:32 | ED Cough/URI ---
General Chief Complaint: Cough/Cold/Flu Symptoms Stated Complaint: COUGH, SOB, CRACKLING IN CHEST, RT NECK PAIN Nursing Triage Note: PT. REPORTED SHE HAS HAD A COUGH FOR 2 WEEKS, FELT LIKE SHE WOULD COUGH SO MUCH SHE WOULD ALMOST PASS OUT. ON THE SHE HAD A MEDIAL BRANCH BLOCK AND HAD BEEN COUGHING PRIOR TO THIS BUT IT GOT WORSE AFTER. NOW FEELS CHEST IS RATTLING, HAS PAIN ON THE RIGHT SIDE WHEN COUGHING. Sepsis Screen: No Definite Risk Source: patient History of Present Illness Date Seen by Provider: Oct 28, 2018 Time Seen by Provider: 22:32 Initial Comments 33-year-old female presenting with 2 weeks of cough and congestion. She states that she has been fighting a cough and upper respiratory infection for at least 2 weeks and thinking it would get better. She has not tried to see her primary doctor. She hasn't tried taking some [id number]-[id number] medicine as well as some leftover Augmentin that she had at home. She had 5 doses of Augmentin that she tried taking. She was not improving and felt like things were worse tonight so she came to the emergency department. Again she never tried calling her doctor getting in with the clinic. She was having pain in her chest wall from coughing so much. Tonight she felt like she might pass out from coughing so hard. She was not bringing up hardly any mucus with her cough even though it was very hard. She was having chills and subjective fever but never took her temperature. She was also having a lot of pain in the right ureter and neck as well as her right sinuses. She has had ear infections in the past and thought she might have a double ear infection currently due to the pain. Allergies and Home Medications Allergies Coded Allergies: zolpidem (Verified Allergy, Unknown, 10/28/18) Home Medications Azithromycin 250 Mg Tablet, 500 MG PO DAILY Prescribed by: TOOTIE LEO on 10/29/18 0119 Hydrocodone Bit/Acetaminophen 1 Each Tablet, 0.5-1 EACH PO Q 4 - 6 HRS PRN Prescribed by: HARISH BARBOSA on 04/04/10 0953 Promethazine HCl/Codeine 118 Ml Syrup, 5 ML PO Q6H PRN for COUGH Prescribed by: TOOTIE LEO on 10/29/18 011 Patient Home Medication List Home Medication List Reviewed: Yes Review of Systems Review of Systems Constitutional: chills, malaise EENTM: ear pain (right side), nose congestion, throat pain (right side), other (sinus pressure on right side); No ear discharge, No epistaxis Respiratory: cough, short of breath Cardiovascular: chest pain (from coughing) Gastrointestinal: no symptoms reported Genitourinary: no symptoms reported Musculoskeletal: other (chest wall pain) Skin: no symptoms reported Psychiatric/Neurological: Anxiety, Headache (right side) Past Sqidcrf-Penjzu-Zushna Hx Past Med/Social Hx: Reviewed Nursing Past Med/Soc Hx Patient Social History Recent Foreign Travel: No Contact w/Someone Who Travel: No Recent Infectious Disease Expo: No Past Medical History Adenoidectomy, Section, Gallbladder, Tonsillectomy Physical Exam Vital Signs - First Documented 10/28/18 10/28/18 22:15 23:21 Temp 100.2 Pulse 110 Resp 23 B/P (MAP) 153/91 (111) Pulse Ox 99 O2 Delivery Room Air O2 Flow Rate 2.00 FiO2 99 Capillary Refill : Less Than 3 Seconds Height: 5'5.00" Weight: 284lbs. oz. 128.655134il; BMI Method:Stated General Appearance: WD/WN, moderate distress (coughing on exam and with trying to speak), obese HEENT: PERRL/EOMI, TM abnormal (R) (dull with effusion), TM abnormal (L) (scarring to TM), pharyngeal erythema; No tonsillar exudate Neck: supple, lymphadenopathy (R), lymphadenopathy (L) Respiratory: decreased breath sounds, rhonchi (right greater than left) Cardiovascular: normal peripheral pulses, no edema, tachycardia Gastrointestinal: normal bowel sounds, non tender, soft Extremities: normal range of motion, non-tender, normal inspection, no pedal edema, no calf tenderness, normal capillary refill Neurologic/Psychiatric: alert, normal mood/affect, oriented x 3 Skin: normal color, warm/dry Focused Exam Lactate Level 10/28/18 23:05: Lactic Acid Level 1.70 Lactic Acid Level Laboratory Tests Test 10/28/18 23:05 Lactic Acid Level 1.70 MMOL/L (0.50-2.00) Progress/Results/Core Measures Suspected Sepsis Recent Fever Within 48 Hours: Yes Infection Criteria Present: None New/Unexplained Altered Menta: No Sepsis Screen: No Definite Risk SIRS Temperature:100.2 Pulse: 110 Respiratory Rate: 23 Laboratory Tests 10/28/18 23:05: White Blood Count 8.5 Blood Pressure 153 /91 Mean: 111 10/28/18 23:05: Lactic Acid Level 1.70 Laboratory Tests 10/28/18 23:05: Creatinine 0.72, Platelet Count 331, Total Bilirubin 0.5 Results/Orders Lab Results Laboratory Tests Test 10/28/18 22:57 10/28/18 23:05 Range/Units Urine Color YELLOW Urine Clarity CLEAR Urine pH 6.0 5-9 Urine Specific Pearce 1.015 L 1.016-1.022 Urine Protein NEGATIVE NEGATIVE Urine Glucose (UA) TRACE H NEGATIVE Urine Ketones NEGATIVE NEGATIVE Urine Nitrite NEGATIVE NEGATIVE Urine Bilirubin NEGATIVE NEGATIVE Urine Urobilinogen 0.2 NORMAL MG/DL Urine Leukocyte Esterase NEGATIVE NEGATIVE Urine RBC (Auto) NEGATIVE NEGATIVE Urine RBC NONE /HPF Urine WBC RARE /HPF Urine Squamous Epithelial Cells 5-10 /HPF Urine Crystals NONE /LPF Urine Bacteria NONE /HPF Urine Casts NONE /LPF Urine Mucus NEGATIVE /LPF Urine Culture Indicated NO Urine Test NEGATIVE NEGATIVE White Blood Count 8.5 4.3-11.0 10^3/uL Red Blood Count 4.66 4.35-5.85 10^6/uL Hemoglobin 13.9 11.5-16.0 G/DL Hematocrit 40 35-52 % Mean Corpuscular Volume 85 80-99 FL Mean Corpuscular Hemoglobin 30 25-34 PG Mean Corpuscular Hemoglobin Concent 35 32-36 G/DL Red Cell Distribution Width 12.8 10.0-14.5 % Platelet Count 331 130-400 10^3/uL Mean Platelet Volume 9.2 7.4-10.4 FL Neutrophils (%) (Auto) 70 42-75 % Lymphocytes (%) (Auto) 20 12-44 % Monocytes (%) (Auto) 7 0-12 % Eosinophils (%) (Auto) 2 0-10 % Basophils (%) (Auto) 0 0-10 % Neutrophils # (Auto) 6.0 1.8-7.8 X 10^3 Lymphocytes # (Auto) 1.7 1.0-4.0 X 10^3 Monocytes # (Auto) 0.6 0.0-1.0 X 10^3 Eosinophils # (Auto) 0.2 0.0-0.3 10^3/uL Basophils # (Auto) 0.0 0.0-0.1 10^3/uL Sodium Level 138 135-145 MMOL/L Potassium Level 3.9 3.6-5.0 MMOL/L Chloride Level 98 98-107 MMOL/L Carbon Dioxide Level 28 21-32 MMOL/L Anion Gap 12 5-14 MMOL/L Blood Urea Nitrogen 8 7-18 MG/DL Creatinine 0.72 0.60-1.30 MG/DL Estimat Glomerular Filtration Rate > 60 BUN/Creatinine Ratio 11 Glucose Level 190 H 70-105 MG/DL Lactic Acid Level 1.70 0.50-2.00 MMOL/L Calcium Level 9.3 8.5-10.1 MG/DL Corrected Calcium 8.9 8.5-10.1 MG/DL Total Bilirubin 0.5 0.1-1.0 MG/DL Aspartate Amino Transf (AST/SGOT) 39 H 5-34 U/L Alanine Aminotransferase (ALT/SGPT) 58 H 0-55 U/L Alkaline Phosphatase 103 40-136 U/L Total Protein 7.5 6.4-8.2 GM/DL Albumin 4.5 3.2-4.5 GM/DL My Orders Orders - TOOTIE LEO MD Cbc With Automated Diff (10/28/18 22:48) Comprehensive Metabolic Panel (10/28/18 22:48) Blood Culture (10/28/18 22:48) Albuterol/Ipra Inhalation Soln (Duoneb I (10/28/18 23:00) Chest Pa/Lat (2 View) (10/28/18 22:48) Ekg Tracing (10/28/18 22:48) O2 (10/28/18 22:48) Ed Iv/Invasive Line Start (10/28/18 22:48) Sputum Culture (10/28/18 22:48) Monitor-Rhythm Ecg Trace Only (10/28/18 22:48) Lactic Acid Analyzer (10/28/18 22:48) Svn Small Volume Nebulizer (10/28/18 22:48) Ns Iv 1000 Ml (Sodium Chloride 0.9%) (10/28/18 23:00) Ketorolac Injection (Toradol Injection) (10/28/18 23:00) Ct Sinus Complete Wo (10/28/18 22:48) Ua Culture If Indicated (6/27/19 23:13) Hcg,Qualitative Urine (10/28/18 23:13) Ceftriaxone For Iv Use (Rocephin For I (10/29/18 00:43) Azithromycin Tablet (Zithromax Tablet) (10/29/18 00:43) Ceftriaxone For Iv Use (Rocephin For I (10/29/18 00:45) Promethazine/ Codeine Syrup (Phenergan W (10/29/18 01:11) Medications Given in ED Current Medications Medications Dose Ordered Sig/Manpreet Route Start Time Stop Time Status Last Admin Dose Admin Albuterol/ Ipratropium 3 ml ONCE ONCE INH 10/28/18 23:00 10/28/18 23:01 DC 10/28/18 23:25 3 ML Ketorolac Tromethamine 30 mg ONCE ONCE IVP 10/28/18 23:00 10/28/18 23:01 DC 10/28/18 23:25 30 MG Vital Signs/I&O 10/28/18 10/28/18 10/29/18 22:15 23:21 01:24 Temp 100.2 100.2 Pulse 110 110 Resp 23 23 B/P (MAP) 153/91 (111) 153/91 (111) Pulse Ox 99 99 99 O2 Delivery Room Air Nasal Cannula Nasal Cannula O2 Flow Rate 2.00 2.00 FiO2 99 Capillary Refill : Less Than 3 Seconds Blood Pressure Mean: 111 Progress Note #1: Progress Note check labs and CXR to look for infection or infiltrate, CT sinuses to look for sinusitis and fluid in ears or with her throat on the right since she was having pain on that side. Give IVF for hydration and try breathing treatment for cough. Progress Note #2: Progress Note Labs did not show any acute significant abnormality. Her heart rate did improve with treatment with the fluids. Her coughing was mildly improved after breathing treatment. Her chest x-ray on my review of her 2 view films showed right lower lobe infiltrate. Her CT scan of her sinuses showed a mucous retention cyst on the right maxillary sinus. There is no definite sinusitis. Her lactic acid was negative for sepsis. Will plan on treating her with a course of antibiotics for the infiltrate in her right long and the fluid and pain in her right ear for current otitis media. Counseled on follow-up and return precautions. We'll have her check back with the clinic about all this. If she is not improving she may need to see ENT as well about the mucous retention cyst ECG Initial ECG Impression Date: Oct 28, 2018 Initial ECG Impression Time: 23:14 Initial ECG Rate: 93 Initial ECG Rhythm: Normal Sinus Initial ECG Intervals: Normal Initial ECG Impression: Normal Comment Normal sinus rhythm with a heart rate 93 bpm. AR interval 154 ms. QT interval 349 ms and a QT corrected interval 435 ms. There is no ST elevation. There is no prior tracing for comparison. Diagnostic Imaging Diagonstic Imaging: CT Plain Films/CT/US/NM/MRI: other (sinuses) Comments Impression mucus retention cyst in the right maxilla sinus. Otherwise the paranasal sinuses are clear. No evidence of sinusitis. Read by radiologist Kaiden Pinzon M.D. Study was read at 23:59 PM and initial results transmitted at 00:09 AM Reviewed: Reviewed [place] Study Departure Impression Primary Impression: Otitis media, right Qualified Codes: H65.04 - Acute serous otitis media, recurrent, right ear Additional Impressions: Right lower lobe pneumonia Qualified Codes: J18.1 - Lobar pneumonia, unspecified organism Cough Mucous retention cyst of maxillary sinus Disposition: HOME, SELF-CARE Condition: Stable Departure-Patient Inst. Decision time for Depature: 01:15 Referrals: JEOVANNY STAFNORD (PCP) Primary Care Physician NO,LOCAL PHYSICIAN (Family) Primary Care Physician Patient Instructions: Pneumonia, Adult (DC), Cough, Adult (DC), Ear Infections (Otitis Media) (DC) Add. Discharge Instructions: Stay well hydrated and get plenty of rest. Follow up with clinic for your cough and infection. If you are not getting better they may want you to see ENT about your cyst in the sinus on right side Try taking Mucinex to help with cough and help get congestion out of your lungs and sinuses Use the Phenergan with Codeine for cough more at bedtime or when you are trying to rest as it has a narcotic in it and you should not be driving while taking it. Take the antibiotics until gone All discharge instructions reviewed with patient and/or family. Voiced understanding. Scripts Azithromycin (Azithromycin) 250 Mg Tablet 500 MG PO DAILY for 4 Days, #8 TAB 0 Refills Prov: TOOTIE LEO MD 10/29/18 Promethazine HCl/Codeine (Promethazine-Codeine Syrup) 118 Ml Syrup 5 ML PO Q6H PRN for COUGH for 6 Days, #118 ML 0 Refills Prov: TOOTIE LEO MD 10/29/18 Work/School Note: Work Release Form Date Seen in the Emergency Department: Oct 29, 2018 Return to Work: Nov 01, 2018 Restrictions: No Restrictions TOOTIE LEO MD Oct 28, 2018 22:32
[2018-10-28] MEDS ORDERED: RT-ALBUTEROL/IPRATROPIUM 3 ML (DUONEB) VIAL INH ONE (23:00)
[2018-10-28] MEDS ORDERED: KETOROLAC 30 MG/ML VIAL IVP ONE (23:00)
[2018-10-28] MEDS ORDERED: NS IV 1000 ML 1,000 ML IV SCH (23:00)
[2018-10-28 23:19] LABS: BASOPHILS % (AUTO) 0 % (0-10); EOSINOPHILS % (AUTO) 2 % (0-10); HEMATOCRIT 40 % (35-52); HEMOGLOBIN 13.9 G/DL (11.5-16.0); LYMPHOCYTES % (AUTO) 20 % (12-44); MEAN CORPUSCULAR HEMOGLOBIN 30 PG (25-34); MEAN CORPUSCULAR HGB CONC 35 G/DL (32-36); MEAN CORPUSCULAR VOLUME 85 FL (80-99); MEAN PLATELET VOLUME 9.2 FL (7.4-10.4); MONOCYTES % (AUTO) 7 % (0-12); NEUTROPHILS % (AUTO) 70 % (42-75); PLATELET COUNT 331 10^3/uL (130-400); RED CELL DISTRIBUTION WIDTH 12.8 % (10.0-14.5); WHITE BLOOD COUNT 8.5 10^3/uL (4.3-11.0)
[2018-10-28 23:20] LABS: EOSINOPHILS # (AUTO) 0.2 10^3/uL (0.0-0.3); LYMPHOCYTES # (AUTO) 1.7 X 10^3 (1.0-4.0); MONOCYTES # (AUTO) 0.6 X 10^3 (0.0-1.0)
[2018-10-28 23:28] LABS: BILIRUBIN,URINE NEGATIVE (NEGATIVE); CLARITY,URINE CLEAR; COLOR,URINE YELLOW; GLUCOSE, URINE (UA) TRACE (NEGATIVE); KETONES,URINE NEGATIVE (NEGATIVE); LEUKOCYTE ESTERASE ,URINE NEGATIVE (NEGATIVE); NITRITE,URINE NEGATIVE (NEGATIVE); PROTEIN,URINE NEGATIVE (NEGATIVE); UROBILINOGEN,URINE 0.2 MG/DL (NORMAL)
[2018-10-28 23:29] LABS: HCG,QUALITATIVE URINE NEGATIVE (NEGATIVE); WBC,URINE RARE /HPF
[2018-10-28 23:36] LABS: ALANINE AMINOTRANSFERASE 58 U/L (0-55); ALBUMIN 4.5 GM/DL (3.2-4.5); ALKALINE PHOSPHATASE 103 U/L (40-136); BILIRUBIN,TOTAL 0.5 MG/DL (0.1-1.0); BUN/CREATININE RATIO 11; CALCIUM 9.3 MG/DL (8.5-10.1); CARBON DIOXIDE 28 MMOL/L (21-32); CHLORIDE 98 MMOL/L (98-107); CREATININE SERUM 0.72 MG/DL (0.60-1.30); GFR ESTIMATED > 60; GLUCOSE 190 MG/DL (70-105); POTASSIUM 3.9 MMOL/L (3.6-5.0); SODIUM 138 MMOL/L (135-145); TOTAL PROTEIN 7.5 GM/DL (6.4-8.2)
[2018-10-29] MEDS ORDERED: guaiFENesin/CODEINE (ROBITUSSIN AC) 10ML UDC PO STA (00:42)
[2018-10-29] MEDS ORDERED: cefTRIAXone FOR IV USE 1,000 MG in WATER (STERILE) FOR INJECTION 10 ML IV STA (00:43)
[2018-10-29] MEDS ORDERED: AZITHROMYCIN 250 MG TAB (ZITHROMAX) PO STA (00:43)
[2018-10-29] MEDS ORDERED: cefTRIAXone 1,000 MG IV (ROCEPHIN) VIAL ONE (00:45)
[2018-10-29] MEDS ORDERED: PROMETHAZINE/ CODEINE SYRUP 5 ML UDC PO STA (01:11)
[2018-10-29] MEDS ORDERED: AZIT250T12 PO (01:19)
[2018-10-29] MEDS ORDERED: CODE118S4 PO (01:19)
[2018-10-29 01:24] VITALS: BP 153/91
--- NOTE | 2018-10-29 05:39 | Diagnostic Imaging Report ---
INDICATION: Cough x2 weeks PA and lateral chest Heart size and pulmonary vascularity are normal. Lungs are clear. There are no effusions or pneumothoraces. IMPRESSION: Negative chest Dictated by: Dictated on workstation # [id number]
--- NOTE | 2018-10-29 06:13 | Diagnostic Imaging Report ---
PROCEDURE: CT sinuses without contrast TECHNIQUE: Multiple contiguous axial images were obtained through the sinuses without the use of intravenous contrast. Coronal and sagittal reformations were then performed. Auto Exposure Controls were utilized during the CT exam to meet ALARA standards for radiation dose reduction. INDICATION: Upper respiratory infection There is a mucous retention cyst in the floor of the right maxillary sinus. There is no membrane thickening. The ostiomeatal units are widely patent. Nasal passages are clear. Ethmoid air cells are clear. Sphenoid and frontal sinuses are clear. IMPRESSION: There is a mucous retention cyst in the floor of the right maxillary sinus. No evidence for acute sinusitis. I agree with preliminary interpretation. Dictated by: Dictated on workstation # [id number]
== END 2018-10-29 01:28 | disposition home or self-care (01) ==
LOC: EDUNIT# 22:07 → ER FS 22:09
DX: J18.1 Lobar pneumonia, unspecified organism (principal); H66.91 Otitis media, unspecified, right ear; J34.1 Cyst and mucocele of nose and nasal sinus; Z88.8 Allergy status to other drugs, medicaments and biological substances; Z90.89 Acquired absence of other organs
CPT/HCPCS: 36415; 70486; 71046; 80053; 81000; 83605; 84703; 85025; 87040; 93005; 93041; 96361; 96374; 96375

== ENCOUNTER 2018-12-13 13:52 | Emergency (ER) | payer BC ==
[~2018-12-13] VITALS: Ht 165.1 cm; Wt 127.0 kg
[~2018-12-13 13:52] MED LIST changes: +AZIT250T12 PO; +CODE118S4 PO
[2018-12-13] MEDS ORDERED: LORazepam INJ 2 MG/ML (ATIVAN) VIAL IVP ONE (14:15)
[2018-12-13] MEDS ORDERED: ONDANSETRON 4 MG/2 ML (SDV) Z0FRAN IVP ONE (14:15)
[2018-12-13] MEDS ORDERED: NS IV 1000 ML 1,000 ML IV SCH (14:15)
[2018-12-13] MEDS ORDERED: MECLIZINE 25 MG (ANTIVERT) TAB PO ONE (14:15)
[2018-12-13 14:19] LABS: HEMATOCRIT 46 % (35-52); HEMOGLOBIN 16.3 G/DL (11.5-16.0); MEAN CORPUSCULAR HEMOGLOBIN 30 PG (25-34); MEAN CORPUSCULAR HGB CONC 35 G/DL (32-36); MEAN CORPUSCULAR VOLUME 84 FL (80-99); PLATELET COUNT 346 10^3/uL (130-400); RED CELL DISTRIBUTION WIDTH 13.8 % (10.0-14.5); WHITE BLOOD COUNT 11.3 10^3/uL (4.3-11.0)
[2018-12-13 14:20] LABS: BASOPHILS % (AUTO) 0 % (0-10); EOSINOPHILS # (AUTO) 0.1 10^3/uL (0.0-0.3); EOSINOPHILS % (AUTO) 1 % (0-10); LYMPHOCYTES # (AUTO) 2.1 X 10^3 (1.0-4.0); LYMPHOCYTES % (AUTO) 19 % (12-44); MEAN PLATELET VOLUME 9.6 FL (7.4-10.4); MONOCYTES # (AUTO) 0.6 X 10^3 (0.0-1.0); MONOCYTES % (AUTO) 5 % (0-12); NEUTROPHILS # (AUTO) 8.5 X 10^3 (1.8-7.8); NEUTROPHILS % (AUTO) 75 % (42-75)
--- NOTE | 2018-12-13 14:21 | ED General ---
General Chief Complaint: Dizziness/Syncope Stated Complaint: DIZZINESS History of Present Illness Date Seen by Provider: Dec 13, 2018 Time Seen by Provider: 14:16 Initial Comments Patient presenting to the emergency department for evaluation of intense dizzy sensation says started approximately 2 hours prior to arrival. She said she stood up from eating and then went to go lay down and all of a sudden she had an intense sensation someone was grabbing the top of her head and shaking back and forth she said it does feel like a spinning sensation as well. Patient said that her had just left the house and she called him to come back and pick her up. She had several episodes of vomiting and then was trying to walk back towards the kitchen and passed out at least once. She is unsure how long she passed out for she says she still feels intense nausea and movement sensation. Patient reports history of diabetes hypertension high cholesterol but does not smoke cigarettes and has no known vascular disease. She is in no obvious distress with normal vital signs other than slight tachycardia and hypertension. Allergies and Home Medications Allergies Coded Allergies: zolpidem (Verified Allergy, Unknown, 10/28/18) Home Medications Azithromycin 250 Mg Tablet, 500 MG PO DAILY Prescribed by: TOOTIE LEO on 10/29/18 0119 Hydrocodone Bit/Acetaminophen 1 Each Tablet, 0.5-1 EACH PO Q 4 - 6 HRS PRN Prescribed by: HARISH BARBOSA on 04/04/10 0953 Promethazine HCl/Codeine 118 Ml Syrup, 5 ML PO Q6H PRN for COUGH Prescribed by: TOOTIE LEO on 10/29/18 0119 Patient Home Medication List Home Medication List Reviewed: Yes Review of Systems Review of Systems Constitutional: no symptoms reported EENTM: no symptoms reported Respiratory: no symptoms reported Cardiovascular: no symptoms reported Gastrointestinal: nausea, vomiting Genitourinary: no symptoms reported Musculoskeletal: no symptoms reported Skin: no symptoms reported Psychiatric/Neurological: Other (vertigo) All Other Systems Reviewed Negative Unless Noted: Yes Past Aawjnma-Eiuphw-Bgppyg Hx Past Medical History Adenoidectomy, Section, Gallbladder, Tonsillectomy Physical Exam Vital Signs Vital Signs - First Documented 12/13/18 13:52 Temp 98.5 Pulse 104 Resp 18 B/P (MAP) 142/95 (111) Pulse Ox 96 O2 Delivery Room Air Capillary Refill : Height, Weight, BMI Height: 5'5.00" Weight: 284lbs. oz. 128.047482ej; BMI Method:Stated General Appearance: No Apparent Distress, WD/WN Eyes: Bilateral Eye Normal Inspection, Bilateral Eye Other (horizontal nystagmus on rightward gaze) HEENT: PERRL/EOMI Neck: Supple Respiratory: Lungs Clear, No Respiratory Distress Cardiovascular: Tachycardia Gastrointestinal: Non Tender, Soft Back: Normal Inspection Extremity: Normal Capillary Refill Neurologic/Psychiatric: Alert, Oriented x3, No Motor/Sensory Deficits, laboratory immunologist II- XII Norm as Tested, Other (normal finger to nose and heel to mays) Skin: Normal Color Progress/Results/Core Measures Suspected Sepsis SIRS Temperature: Pulse: Respiratory Rate: Laboratory Tests 12/13/18 14:10: White Blood Count 11.3H Blood Pressure / Mean: Laboratory Tests 12/13/18 14:10: Creatinine 0.63, INR Comment 0.9, Platelet Count 346, Total Bilirubin 0.4 Results/Orders Lab Results Laboratory Tests Test 12/13/18 14:10 12/13/18 15:36 Range/Units White Blood Count 11.3 H 4.3-11.0 10^3/uL Red Blood Count 5.50 4.35-5.85 10^6/uL Hemoglobin 16.3 H 11.5-16.0 G/DL Hematocrit 46 35-52 % Mean Corpuscular Volume 84 80-99 FL Mean Corpuscular Hemoglobin 30 25-34 PG Mean Corpuscular Hemoglobin Concent 35 32-36 G/DL Red Cell Distribution Width 13.8 10.0-14.5 % Platelet Count 346 130-400 10^3/uL Mean Platelet Volume 9.6 7.4-10.4 FL Neutrophils (%) (Auto) 75 42-75 % Lymphocytes (%) (Auto) 19 12-44 % Monocytes (%) (Auto) 5 0-12 % Eosinophils (%) (Auto) 1 0-10 % Basophils (%) (Auto) 0 0-10 % Neutrophils # (Auto) 8.5 H 1.8-7.8 X 10^3 Lymphocytes # (Auto) 2.1 1.0-4.0 X 10^3 Monocytes # (Auto) 0.6 0.0-1.0 X 10^3 Eosinophils # (Auto) 0.1 0.0-0.3 10^3/uL Basophils # (Auto) 0.0 0.0-0.1 10^3/uL Prothrombin Time 12.9 12.2-14.7 SEC INR Comment 0.9 0.8-1.4 Activated Partial Thromboplast Time 26 24-35 SEC Sodium Level 137 135-145 MMOL/L Potassium Level 4.1 3.6-5.0 MMOL/L Chloride Level 98 98-107 MMOL/L Carbon Dioxide Level 22 21-32 MMOL/L Anion Gap 17 H 5-14 MMOL/L Blood Urea Nitrogen 14 7-18 MG/DL Creatinine 0.63 0.60-1.30 MG/DL Estimat Glomerular Filtration Rate > 60 BUN/Creatinine Ratio 22 Glucose Level 217 H 70-105 MG/DL Calcium Level 9.6 8.5-10.1 MG/DL Corrected Calcium 9.2 8.5-10.1 MG/DL Magnesium Level 1.7 L 1.8-2.4 MG/DL Total Bilirubin 0.4 0.1-1.0 MG/DL Aspartate Amino Transf (AST/SGOT) 32 5-34 U/L Alanine Aminotransferase (ALT/SGPT) 44 0-55 U/L Alkaline Phosphatase 96 40-136 U/L Troponin I < 0.30 <0.30 NG/ML Total Protein 7.9 6.4-8.2 GM/DL Albumin 4.5 3.2-4.5 GM/DL Urine Color YELLOW Urine Clarity CLEAR Urine pH 5.0 5-9 Urine Specific [place] >1.030 1.016-1.022 Urine Protein 1+ H NEGATIVE Urine Glucose (UA) NEGATIVE NEGATIVE Urine Ketones NEGATIVE NEGATIVE Urine Nitrite NEGATIVE NEGATIVE Urine Bilirubin NEGATIVE NEGATIVE Urine Urobilinogen 0.2 NORMAL MG/DL Urine Leukocyte Esterase NEGATIVE NEGATIVE Urine RBC (Auto) NEGATIVE NEGATIVE Urine RBC NONE /HPF Urine WBC 2-5 /HPF Urine Squamous Epithelial Cells 25-50 H /HPF Urine Crystals NONE /LPF Urine Bacteria TRACE /HPF Urine Casts NONE /LPF Urine Mucus SMALL H /LPF Urine Culture Indicated NO Urine Test NEGATIVE NEGATIVE Urine Opiates Screen NEGATIVE NEGATIVE Urine Oxycodone Screen NEGATIVE NEGATIVE Urine Methadone Screen NEGATIVE NEGATIVE Urine Propoxyphene Screen NEGATIVE NEGATIVE Urine Barbiturates Screen NEGATIVE NEGATIVE Ur Tricyclic Antidepressants Screen NEGATIVE NEGATIVE Urine Phencyclidine Screen NEGATIVE NEGATIVE Urine Amphetamines Screen NEGATIVE NEGATIVE Urine Methamphetamines Screen NEGATIVE NEGATIVE Urine Benzodiazepines Screen NEGATIVE NEGATIVE Urine Cocaine Screen NEGATIVE NEGATIVE Urine Cannabinoids Screen NEGATIVE NEGATIVE My Orders Orders - JUSTIN BOO DO Cbc With Automated Diff (12/13/18 14:01) Comprehensive Metabolic Panel (12/13/18 14:01) Ekg Tracing (12/13/18 14:01) Ct Head Wo (12/13/18 14:01) Magnesium (12/13/18 14:01) Ua Culture If Indicated (12/13/18 14:01) Troponin I (12/13/18 14:01) Partial Thromboplastin Time (12/13/18 14:01) Protime With Inr (12/13/18 14:01) Lorazepam Injection (Ativan Injection) (12/13/18 14:15) Meclizine Tablet (Antivert Tablet) (12/13/18 14:15) Ondansetron Injection (Zofran Injectio (12/13/18 14:15) Ns Iv 1000 Ml (Sodium Chloride 0.9%) (12/13/18 14:15) Promethazine Injection (Phenergan Injec (12/13/18 15:00) Diphenhydramine Injection (Benadryl Inje (12/13/18 15:00) Drug Screen Stat (Urine) (12/13/18 15:05) Hcg,Qualitative Urine (12/13/18 15:05) Labetalol Injection (Normodyne Injection (12/13/18 16:00) Medications Given in ED Current Medications Medications Dose Ordered Sig/Manpreet Route Start Time Stop Time Status Last Admin Dose Admin Diphenhydramine HCl 25 mg ONCE ONCE IVP 12/13/18 15:00 12/13/18 15:01 DC 12/13/18 15:01 25 MG Lorazepam 1 mg ONCE ONCE IVP 12/13/18 14:15 12/13/18 14:16 DC 12/13/18 14:23 1 MG Meclizine HCl 25 mg ONCE ONCE PO 12/13/18 14:15 12/13/18 14:16 DC 12/13/18 14:23 25 MG Ondansetron HCl 4 mg ONCE ONCE IVP 12/13/18 14:15 12/13/18 14:16 DC 12/13/18 14:23 4 MG Promethazine HCl 12.5 mg ONCE ONCE IVP 12/13/18 15:00 12/13/18 15:01 DC 12/13/18 15:01 12.5 MG Vital Signs/I&O 12/13/18 12/13/18 13:52 15:54 Temp 98.5 Pulse 104 117 Resp 18 18 B/P (MAP) 142/95 (111) 142/90 (107) Pulse Ox 96 99 O2 Delivery Room Air Capillary Refill : Progress Note : Progress Note I suspect given the intensity of her symptoms that this is a peripheral vertigo however central vertigo cannot be completely ruled out given her multiple risk factors. I discussed possibility of giving her TPA for cerebellar stroke however given her normal neurologic exam at this point and more likely etiology of peripheral vertigo will defer TPA and treat with Ativan meclizine and Zofran IV fluids and reassess. Shared decision making used to defer tpa at this time. Patient was given labetalol for her elevated blood pressure as well as Benadryl and Phenergan for continued spinning and nausea sensation. Patient with continued vomiting and vertigo. She is unable to walk with steady gait when going to the bathroom. I tried giving her multiple medications but she continued to be symptomatic. I spoke to patient about treatment plan and told her that if she is still this symptomatic and unable to ambulate safely she would require admission for rule out central pathology. Patient is requesting to go to [facility]. Patient will be transferred in guarded condition. [facility] access center accepted patient but never called back with an accepting physician. Nurses called report. Departure Impression Primary Impression: Hypertensive urgency Additional Impression: Vertigo Disposition: XFER SHT-TRM HOSP Condition: Unchanged Transfer Method of Transfer: EMS Departure-Patient Inst. Referrals: NO,LOCAL PHYSICIAN (PCP) Primary Care Physician JEOVANNY STANFORD (Family) Primary Care Physician JUSTIN BOO DO Dec 13, 2018 14:21
[2018-12-13 14:43] LABS: POTASSIUM 4.1 MMOL/L (3.6-5.0); SODIUM 137 MMOL/L (135-145)
[2018-12-13 14:44] LABS: ALANINE AMINOTRANSFERASE 44 U/L (0-55); ALBUMIN 4.5 GM/DL (3.2-4.5); ALKALINE PHOSPHATASE 96 U/L (40-136); BILIRUBIN,TOTAL 0.4 MG/DL (0.1-1.0); BUN/CREATININE RATIO 22; CALCIUM 9.6 MG/DL (8.5-10.1); CARBON DIOXIDE 22 MMOL/L (21-32); CHLORIDE 98 MMOL/L (98-107); CREATININE SERUM 0.63 MG/DL (0.60-1.30); GFR ESTIMATED > 60; GLUCOSE 217 MG/DL (70-105); MAGNESIUM 1.7 MG/DL (1.8-2.4); TOTAL PROTEIN 7.9 GM/DL (6.4-8.2)
[2018-12-13 14:45] LABS: INR 0.9 (0.8-1.4); PROTHROMBIN TIME PATIENT 12.9 SEC (12.2-14.7)
[2018-12-13] MEDS ORDERED: PROMETHAZINE INJ 25 MG/ML (PHENERGAN) AMP IVP ONE (15:00)
[2018-12-13] MEDS ORDERED: diphenhydrAMINE 50 MG/ML INJ (BENADRYL) IVP ONE (15:00)
--- NOTE | 2018-12-13 15:27 | Diagnostic Imaging Report ---
PROCEDURE: CT head without contrast. TECHNIQUE: Multiple contiguous axial images were obtained through the brain without the use of intravenous contrast. Auto Exposure Controls were utilized during the CT exam to meet ALARA standards for radiation dose reduction. INDICATION: Dizziness. Possible syncope. COMPARISON: CT sinuses on 10/28/2018. FINDINGS: The ventricles and cortical sulci are age-appropriate. There is no midline shift or mass-effect. No acute intracranial hemorrhage is seen. There is no CT evidence of acute territorial ischemia. No focal masses or collections are present. The calvarium is intact. The visualized paranasal sinuses are clear. IMPRESSION: No hemorrhage or focal intra-axial mass. No CT evidence of large acute territorial ischemia. Dictated by: Dictated on workstation # [id number]
[2018-12-13 15:49] LABS: BACTERIA,URINE TRACE /HPF; BILIRUBIN,URINE NEGATIVE (NEGATIVE); CLARITY,URINE CLEAR; COLOR,URINE YELLOW; GLUCOSE, URINE (UA) NEGATIVE (NEGATIVE); KETONES,URINE NEGATIVE (NEGATIVE); LEUKOCYTE ESTERASE ,URINE NEGATIVE (NEGATIVE); NITRITE,URINE NEGATIVE (NEGATIVE); PROTEIN,URINE 1+ (NEGATIVE); UROBILINOGEN,URINE 0.2 MG/DL (NORMAL)
[2018-12-13 15:50] LABS: SQUAMOUS EPITHELIAL CELL,UR 25-50 /HPF
[2018-12-13 15:54] VITALS: BP 142/90
[2018-12-13 15:55] LABS: AMPHETAMINE SCREEN, URINE NEGATIVE (NEGATIVE); BARBITURATE SCREEN URINE NEGATIVE (NEGATIVE); BENZODIAZEPINES SCREEN URINE NEGATIVE (NEGATIVE); CANNABINOID SCREEN, URINE NEGATIVE (NEGATIVE); COCAINE SCREEN URINE NEGATIVE (NEGATIVE); HCG,QUALITATIVE URINE NEGATIVE (NEGATIVE); METHADONE STAT NEGATIVE (NEGATIVE); METHAMPHETAMINE SCREEN URINE S NEGATIVE (NEGATIVE); OPIATE SCREEN URINE NEGATIVE (NEGATIVE); OXYCODONE STAT NEGATIVE (NEGATIVE); PROPOXYPHENE STAT NEGATIVE (NEGATIVE); TRICYCLIC ANTIDEPRESSANTS SCRE NEGATIVE (NEGATIVE)
[2018-12-13] MEDS ORDERED: LABETALOL HCL 20 MG/4 ML VIAL IV ONE (16:00)
[2018-12-13 17:23] VITALS: BP 122/67
--- NOTE | 2018-12-13 17:50 | NUR ---
REPORT GIVEN TO SUZI RODRIGUES AT [facility]. [id number]
== END 2018-12-13 17:25 | disposition short-term general hospital (02) ==
LOC: EDUNIT# 13:52 → ER FS 13:54
DX: I16.0 Hypertensive urgency (principal); R42 Dizziness and giddiness; Z88.8 Allergy status to other drugs, medicaments and biological substances; Z90.89 Acquired absence of other organs
CPT/HCPCS: 36415; 70450; 80053; 80306; 81000; 83735; 84484; 84703; 85025; 85610; 85730; 93005

== ENCOUNTER → 2020-01-19 | Outpatient (CLI) | payer BC ==
[~2020-01-19] MED LIST changes: +CATHETER FLUSH 10 ML SYR IV PRN; +HOLD METFORMIN - RECEIVED CONTRAST 20 ML VIAL IV SCH; +IOHEXOL 350 MG/ML 100 ML (OMNIPAQUE 350) VIAL IV ONE; +NS 100 ML (IVPB) BAG IV ONE
--- NOTE | 2020-01-19 13:03 | Diagnostic Imaging Report ---
PROCEDURE: CT abdomen with contrast only. TECHNIQUE: Multiple contiguous axial images were obtained through the abdomen after the administration of intravenous contrast. Auto Exposure Controls were utilized during the CT exam to meet ALARA standards for radiation dose reduction. INDICATION: Elevated liver function studies with family history of hepatic malignancy. COMPARISON: I have no relevant comparison. FINDINGS: There is a mild generalized diminished density of the liver parenchyma consistent with its mild fatty infiltration. There is normal enhancement of the intra and extrahepatic portal veins as well as enhancement of the cava and the hepatic veins. Vascular direction of flow cannot be addressed at CT. The spleen is within normal limits of size and appears nonfocal. The gallbladder is surgically absent. There is no abnormal dilatation of the intra or extrahepatic bile ducts. The pancreas appears normal. There is a 2.5 mm stone within the lumen of the left ureter at the ureteropelvic junction without upstream hydronephrosis or perinephric edema. The right kidney appears unremarkable and the left kidney is otherwise normal. The adrenals are normal. There is air-containing appendix visualized and normal. There is no ascites, abscess, hematoma, or acute fluid collection. The aorta is patent and nonaneurysmal. There is no mesenteric or retroperitoneal adenopathy. There are chronic-appearing bilateral L5 spondylolysis defects. The lung bases and the osseous structures appear nonacute. IMPRESSION: 1. Mild hepatic steatosis with previous cholecystectomy. No demonstrated liver mass or biliary ductal dilatation. 2. Proximal left ureteral stone 2.6 mm without resultant hydronephrosis. Report given to nurse (Viviana) at 1:02 PM 01/19/2020/cb Dictated by: Dictated on workstation # [id number]
== END ==
LOC: RAD FS 11:30
PROVIDERS: ATTEND Nurse Practitioner
DX: K76.0 Fatty (change of) liver, not elsewhere classified (principal); N20.1 Calculus of ureter; R94.5 Abnormal results of liver function studies; Z80.0 Family history of malignant neoplasm of digestive organs; Z90.49 Acquired absence of other specified parts of digestive tract
CPT/HCPCS: 74160

== ENCOUNTER 2020-09-21 18:04 | Emergency (ER) | payer BC ==
[~2020-09-21] VITALS: Ht 165 cm; Wt 134.0 kg
[~2020-09-21 18:04] MED LIST changes: -CATHETER FLUSH 10 ML SYR IV PRN; -HOLD METFORMIN - RECEIVED CONTRAST 20 ML VIAL IV SCH; -IOHEXOL 350 MG/ML 100 ML (OMNIPAQUE 350) VIAL IV ONE; -NS 100 ML (IVPB) BAG IV ONE
--- NOTE | 2020-09-21 18:13 | ED Chest Pain ---
General Chief Complaint: Chest Pain Stated Complaint: CHEST PAIN Source: patient Exam Limitations: no limitations History of Present Illness Date Seen by Provider: September 21, 2020 Time Seen by Provider: 18:13 Initial Comments 35-year-old female presents with chest pain. Patient reports that the chest pain started at 1:49 PM. She was just in there. Is in the lower sternal area of her chest. Is been pretty consistent since it started. She does get worsening pain with palpation of the chest wall. She took 2 aspirin around 3 PM with no relief. Patient reports at 1 point the pain radiated across her lower chest and into her bilateral arms. No radiation of the back. No shortness of breath. No nausea vomiting diarrhea diaphoresis or other systemic complaints. No reports of cough fever chills. Allergies and Home Medications Allergies Coded Allergies: acetaminophen (Verified Allergy, Unknown, 09/21/20) oxycodone (Verified Allergy, Unknown, 09/21/20) zolpidem (Verified Allergy, Unknown, 10/28/18) Home Medications Azithromycin 250 Mg Tablet, 500 MG PO DAILY Prescribed by: TOOTIE LEO on 10/29/18 0119 Hydrocodone Bit/Acetaminophen 1 Each Tablet, 0.5-1 EACH PO Q 4 - 6 HRS PRN Prescribed by: HARISH BARBOSA on 04/04/10 0953 Promethazine HCl/Codeine 118 Ml Syrup, 5 ML PO Q6H PRN for COUGH Prescribed by: TOOTIE LEO on 10/29/18 0119 Patient Home Medication List Home Medication List Reviewed: Yes Review of Systems Review of Systems Constitutional: No chills, No fever Respiratory: Denies Cough, Denies Shortness of Air Cardiovascular: See HPI, Chest Pain; Denies Irregular Heart Rate, Denies Lightheadedness Gastrointestinal: Denies Abdominal Pain, Denies Nausea, Denies Vomiting Genitourinary: No Symptoms Reported Musculoskeletal: no symptoms reported Skin: no symptoms reported Psychiatric/Neurological: No Symptoms Reported Endocrine: No Symptoms Reported Hematologic/Lymphatic: No Symptoms Reported Past Jufzqzc-Wiiwyf-Vnyzbs Hx Past Med/Social Hx: Reviewed Nursing Past Med/Soc Hx Patient Social History 2nd Hand Smoke Exposure: No Recent Hopitalizations: No Seasonal Allergies Seasonal Allergies: No Past Medical History Surgeries: Yes (HERNIA REPAIR) Adenoidectomy, Section, Gallbladder, Tonsillectomy Respiratory: No Cardiac: Yes Hypertension Neurological: No Genitourinary: No Gastrointestinal: No Musculoskeletal: No Endocrine: Yes Diabetes, Insulin dep HEENT: No Cancer: No Psychosocial: No Sleep Difficulties Integumentary: No Blood Disorders: No Physical Exam Vital Signs Vital Signs - First Documented 09/21/20 18:12 Temp 36.2 Pulse 97 Resp 15 B/P (MAP) 134/78 (96) Pulse Ox 97 O2 Delivery Room Air Capillary Refill : Height, Weight, BMI Height: 5'5.00" Weight: 280lbs. oz. 127.778225pp; 47.00 BMI Method:Stated General Appearance: No Apparent Distress, Obese Neck: Full Range of Motion Respiratory: Lungs Clear, Normal Breath Sounds, Other (Chest wall tenderness) Cardiovascular: Regular Rate, Rhythm, No Edema Gastrointestinal: Non Tender, Soft Extremity: Normal Capillary Refill, Non Tender Neurologic/Psychiatric: Alert, Oriented x3, No Motor/Sensory Deficits, Normal Mood/Affect, digital director II-XII Norm as Tested Skin: Normal Color, Warm/Dry Progress/Results/Core Measures Results/Orders Lab Results Laboratory Tests Test 09/21/20 18:30 Range/Units White Blood Count 10.0 4.3-11.0 10^3/uL Red Blood Count 5.18 4.35-5.85 10^6/uL Hemoglobin 16.1 H 11.5-16.0 G/DL Hematocrit 46 35-52 % Mean Corpuscular Volume 88 80-99 FL Mean Corpuscular Hemoglobin 31 25-34 PG Mean Corpuscular Hemoglobin Concent 35 32-36 G/DL Red Cell Distribution Width 13.3 10.0-14.5 % Platelet Count 378 130-400 10^3/uL Mean Platelet Volume 9.7 7.4-10.4 FL Immature Granulocyte % (Auto) 1 % Neutrophils (%) (Auto) 66 42-75 % Lymphocytes (%) (Auto) 25 12-44 % Monocytes (%) (Auto) 6 0-12 % Eosinophils (%) (Auto) 1 0-10 % Basophils (%) (Auto) 1 0-10 % Neutrophils # (Auto) 6.6 1.8-7.8 X 10^3 Lymphocytes # (Auto) 2.5 1.0-4.0 X 10^3 Monocytes # (Auto) 0.6 0.0-1.0 X 10^3 Eosinophils # (Auto) 0.1 0.0-0.3 10^3/uL Basophils # (Auto) 0.1 0.0-0.1 10^3/uL Immature Granulocyte # (Auto) 0.1 0.0-0.1 10^3/uL D-Dimer 0.32 0.00-0.49 UG/ML Sodium Level 139 135-145 MMOL/L Potassium Level 3.1 L 3.6-5.0 MMOL/L Chloride Level 96 L 98-107 MMOL/L Carbon Dioxide Level 28 21-32 MMOL/L Anion Gap 15 H 5-14 MMOL/L Blood Urea Nitrogen 13 7-18 MG/DL Creatinine 0.61 0.60-1.30 MG/DL Estimat Glomerular Filtration Rate > 60 BUN/Creatinine Ratio 21 Glucose Level 135 H 70-105 MG/DL Calcium Level 9.5 8.5-10.1 MG/DL Corrected Calcium 9.3 8.5-10.1 MG/DL Magnesium Level 1.6 1.6-2.4 MG/DL Total Bilirubin 0.7 0.1-1.0 MG/DL Aspartate Amino Transf (AST/SGOT) 195 H 5-34 U/L Alanine Aminotransferase (ALT/SGPT) 203 H 0-55 U/L Alkaline Phosphatase 97 40-136 U/L Troponin I < 0.30 <0.30 NG/ML Pro-B-Type Natriuretic Peptide 7.7 <75.0 PG/ML Total Protein 7.3 6.4-8.2 GM/DL Albumin 4.3 3.2-4.5 GM/DL Lipase 25 8-78 U/L My Orders Orders - NEW,JD L DO Cbc With Automated Diff (09/21/20 18:18) Magnesium (09/21/20 18:18) Ekg Tracing (09/21/20 18:18) Comprehensive Metabolic Panel (09/21/20 18:18) Monitor-Rhythm Ecg Trace Only (09/21/20 18:18) Ed Iv/Invasive Line Start (09/21/20 18:18) Lipase (09/21/20 18:18) Fibrin Degradation Products (09/21/20 18:18) Troponin I Fs (09/21/20 18:18) Probnp Fs (09/21/20 18:18) Chest Pa/Lat (2 View) (09/21/20 18:18) Famotidine Injection (Pepcid Injection) (09/21/20 18:20) Ketorolac Injection (Toradol Injection) (09/21/20 18:20) Lidocaine 2% Viscous 15 Ml (Xylocaine Vi (09/21/20 19:30) Antacid Suspension (Mylanta Suspension (09/21/20 19:30) Medications Given in ED Current Medications Medications Dose Ordered Sig/Manpreet Route Start Time Stop Time Status Last Admin Dose Admin Al Hydrox/Mg Hydrox/Simethicone 30 ml ONCE ONCE PO 09/21/20 19:30 09/21/20 19:31 DC 09/21/20 19:32 30 ML Lidocaine HCl 15 ml ONCE ONCE PO 09/21/20 19:30 09/21/20 19:31 DC 09/21/20 19:32 15 ML Vital Signs/I&O 09/21/20 09/21/20 18:12 18:41 Temp 36.2 Pulse 97 Resp 15 B/P (MAP) 134/78 (96) Pulse Ox 97 O2 Delivery Room Air Room Air Progress Progress Note : Progress Note Patient symptoms improved with GI cocktail. Patient symptoms likely from reflux. Patient stable. Will be discharged home. Initial ECG Impression Date: September 21, 2020 Initial ECG Impression Time: 18:17 Initial ECG Rate: 92 Initial ECG Rhythm: Normal Sinus Initial ECG Intervals qtc 504 Initial ECG Impression: Nonspecific Changes Comment Sinus rhythm, heart rate 92, some borderline T wave abnormalities likely related to body habitus and poor EKG. Slight prolonged QTC at 504. No acute findings Diagnostic Imaging Diagonstic Imaging: Xray Plain Films/CT/US/NM/MRI: chest Comments CHEST PA/LAT (2 VIEW) INDICATION: Chest pain. COMPARISON: 10/28/2018. TECHNIQUE: Two radiographs of the chest dated September 21, 2020. FINDINGS: The cardiac silhouette and pulmonary vasculature are within normal limits. The lungs are clear. No pleural effusion. No pneumothorax. No acute osseous abnormality. Surgical clips within the upper abdomen. IMPRESSION: Similar examination without acute cardiopulmonary abnormality. Reviewed: Reviewed by Me, Reviewed/Discussed Departure Impression Primary Impression: GERD (gastroesophageal reflux disease) Qualified Codes: K21.9 - Gastro-esophageal reflux disease without esophagitis Disposition: HOME, SELF-CARE Condition: Stable Departure-Patient Inst. Referrals: [facility] (PCP) Primary Care Physician JEOVANNY STANFORD (Family) Primary Care Physician Patient Instructions: Acid Reflux and Gastroesophageal Reflux Disease in Adults Add. Discharge Instructions: Start an [id number] reflux medication of your choice Follow-up with your primary care provider in 10 -14 days if not improving All discharge instructions reviewed with patient and/or family. Voiced understanding. JD NEW DO September 21, 2020 18:13
[2020-09-21] MEDS ORDERED: KETOROLAC 30 MG/ML VIAL IVP STA (18:20)
[2020-09-21] MEDS ORDERED: FAMOTIDINE 20MG/2ML IV (PEPCID) IV STA (18:20)
[2020-09-21 18:38] LABS: BASOPHILS # (AUTO) 0.1 10^3/uL (0.0-0.1); BASOPHILS % (AUTO) 1 % (0-10); EOSINOPHILS # (AUTO) 0.1 10^3/uL (0.0-0.3); EOSINOPHILS % (AUTO) 1 % (0-10); HEMATOCRIT 46 % (35-52); HEMOGLOBIN 16.1 G/DL (11.5-16.0); LYMPHOCYTES # (AUTO) 2.5 X 10^3 (1.0-4.0); LYMPHOCYTES % (AUTO) 25 % (12-44); MEAN CORPUSCULAR HEMOGLOBIN 31 PG (25-34); MEAN CORPUSCULAR HGB CONC 35 G/DL (32-36); MEAN CORPUSCULAR VOLUME 88 FL (80-99); MEAN PLATELET VOLUME 9.7 FL (7.4-10.4); MONOCYTES # (AUTO) 0.6 X 10^3 (0.0-1.0); MONOCYTES % (AUTO) 6 % (0-12); NEUTROPHILS # (AUTO) 6.6 X 10^3 (1.8-7.8); NEUTROPHILS % (AUTO) 66 % (42-75); PLATELET COUNT 378 10^3/uL (130-400)
[2020-09-21 18:57] LABS: ALANINE AMINOTRANSFERASE 203 U/L (0-55); ALKALINE PHOSPHATASE 97 U/L (40-136); BILIRUBIN,TOTAL 0.7 MG/DL (0.1-1.0); BUN/CREATININE RATIO 21; CALCIUM 9.5 MG/DL (8.5-10.1); CARBON DIOXIDE 28 MMOL/L (21-32); CHLORIDE 96 MMOL/L (98-107); CREATININE SERUM 0.61 MG/DL (0.60-1.30); GFR ESTIMATED > 60; GLUCOSE 135 MG/DL (70-105); MAGNESIUM 1.6 MG/DL (1.6-2.4); POTASSIUM 3.1 MMOL/L (3.6-5.0); SODIUM 139 MMOL/L (135-145)
[2020-09-21 18:58] LABS: ALBUMIN 4.3 GM/DL (3.2-4.5); LIPASE 25 U/L (8-78); TOTAL PROTEIN 7.3 GM/DL (6.4-8.2)
--- NOTE | 2020-09-21 18:58 | Diagnostic Imaging Report ---
INDICATION: Chest pain. COMPARISON: 10/28/2018. TECHNIQUE: Two radiographs of the chest dated September 21, 2020. FINDINGS: The cardiac silhouette and pulmonary vasculature are within normal limits. The lungs are clear. No pleural effusion. No pneumothorax. No acute osseous abnormality. Surgical clips within the upper abdomen. IMPRESSION: Similar examination without acute cardiopulmonary abnormality. Dictated by: Dictated on workstation # [id number]
[2020-09-21] MEDS ORDERED: ANTACID SUSP 30 ML UDC (MYLANTA) PO ONE (19:30)
[2020-09-21] MEDS ORDERED: LIDOCAINE 2% VISCOUS 15 ML UDC PO ONE (19:30)
[2020-09-21 19:57] VITALS: BP 102/45
== END 2020-09-21 19:57 | disposition home or self-care (01) ==
LOC: EDUNIT# 18:04 → ER FS 18:06
DX: K21.9 Gastro-esophageal reflux disease without esophagitis (principal); R07.89 Other chest pain; I10 Essential (primary) hypertension; E11.9 Type 2 diabetes mellitus without complications; E66.9 Obesity, unspecified; Z68.41 Body mass index [BMI] 40.0-44.9, adult
CPT/HCPCS: 36415; 71046; 80053; 83690; 83735; 83880; 84484; 85025; 85379; 93005; 93041

== ENCOUNTER 2020-12-29 18:44 | Emergency (ER) | payer BC ==
--- NOTE | 2020-12-29 19:16 | ED General ---
General Chief Complaint: Trauma-Non Activation Stated Complaint: FALL Nursing Triage Note: Pt states she slipped and fell in her kitchen at home and presents with left knee, left ankle, left wrist, left upper arm, and neck pain. Pt denies loc at the time of fall and is alert and oriented on arrival. History of Present Illness Date Seen by Provider: Dec 29, 2020 Time Seen by Provider: 19:14 Initial Comments 35-year-old female presents following a fall. Patient reports that she has a new puppy and slipped on some dog feces. Patient reports she fell that she hit the back of her head on the floor. She complains of some pain in her low back, little bit in her neck. But no difficult with range of motion no point tenderness. Little bit of pain in her left ankle pain diffusely in her left upper arm but mainly in her left forearm. Patient has no decreased range of motion with anywhere did not lose consciousness no nausea or vomiting, no bruising or other complaints. Allergies and Home Medications Allergies Coded Allergies: acetaminophen (Verified Allergy, Unknown, 09/21/20) oxycodone (Verified Allergy, Unknown, 09/21/20) zolpidem (Verified Allergy, Unknown, 10/28/18) Home Medications Azithromycin 250 Mg Tablet, 500 MG PO DAILY Prescribed by: TOOTIE LEO on 10/29/18 0119 Hydrocodone Bit/Acetaminophen 1 Each Tablet, 0.5-1 EACH PO Q 4 - 6 HRS PRN Prescribed by: HARISH BARBOSA on 04/04/10 0953 Promethazine HCl/Codeine 118 Ml Syrup, 5 ML PO Q6H PRN for COUGH Prescribed by: TOOTIE LEO on 10/29/18 0119 Patient Home Medication List Home Medication List Reviewed: Yes Review of Systems Review of Systems Constitutional: No chills, No fever EENTM: see HPI Respiratory: No cough, No short of breath Cardiovascular: No chest pain, No palpitations Gastrointestinal: no symptoms reported Genitourinary: no symptoms reported Musculoskeletal: see HPI Skin: no symptoms reported Psychiatric/Neurological: No Symptoms Reported Hematologic/Lymphatic: No Symptoms Reported Immunological/Allergic: no symptoms reported Past Ogcijnl-Jemetk-Uvzxqy Hx Patient Social History Tobacco Use?: No Substance use?: No Alcohol Use?: No Pt feels they are or have been: No Seasonal Allergies Seasonal Allergies: No Past Medical History Surgeries: Yes (HERNIA REPAIR) Adenoidectomy, Section, Gallbladder, Tonsillectomy Respiratory: No Cardiac: Yes Hypertension Neurological: No Genitourinary: No Gastrointestinal: No Musculoskeletal: No Endocrine: Yes Diabetes, Insulin dep HEENT: No Cancer: No Psychosocial: No Sleep Difficulties Integumentary: No Blood Disorders: No Physical Exam Vital Signs Vital Signs - First Documented 12/29/20 18:50 Pulse 100 Resp 18 B/P (MAP) 147/76 (99) Pulse Ox 95 O2 Delivery Room Air Capillary Refill : Less Than 3 Seconds Height, Weight, BMI Height: 5'5.00" Weight: 280lbs. oz. 127.093749tf; 49.00 BMI Method:Stated General Appearance: No Apparent Distress, WD/WN HEENT: PERRL/EOMI, Pharynx Normal, Moist Mucous Membranes Respiratory: Chest Non Tender, Lungs Clear Cardiovascular: Regular Rate, Rhythm, No Edema Gastrointestinal: Non Tender, Soft Back: No Vertebral Tenderness, Other (Mild diffuse lumbar tenderness) Extremity: Normal Capillary Refill, Normal Inspection, Normal Range of Motion, Other (Mild tenderness diffuse left arm but no obvious signs of injury on arm or ankle) Neurologic/Psychiatric: Alert, No Motor/Sensory Deficits, Normal Mood/Affect, instructional developer II-XII Norm as Tested Skin: Normal Color, Warm/Dry Progress/Results/Core Measures Suspected Sepsis SIRS Temperature: Pulse: 100 Respiratory Rate: 18 Blood Pressure 147 /76 Mean: 99 Results/Orders My Orders Orders - VIRGEN,JD L DO Ekg Tracing (12/29/20 19:12) Ekg Tracing (12/29/20 19:12) Ct Head Wo (12/29/20 19:16) Cervical Spine 3 View Or Less (12/29/20 19:16) Forearm 2 View Left (12/29/20 19:16) Lumbar Spine 2 Or 3 View (12/29/20 19:16) Vital Signs/I&O 12/29/20 18:50 Pulse 100 Resp 18 B/P (MAP) 147/76 (99) Pulse Ox 95 O2 Delivery Room Air Capillary Refill : Less Than 3 Seconds Blood Pressure Mean: 99 Progress Note : Progress Note Patient with negative head CT, negative x-rays. Patient with no physical signs with decreased range of motion or obvious injuries. Patient likely with contusion on her back, head and arm. Patient stable and discharged home. If symptoms not improving she should follow with her primary care provider next week. Departure Impression Primary Impression: Fall Qualified Codes: W19.XXXA - Unspecified fall, initial encounter Additional Impressions: Head injury, acute, without loss of consciousness Qualified Codes: S09.90XA - Unspecified injury of head, initial encounter Back contusion Qualified Codes: S20.229A - Contusion of unspecified back wall of thorax, initial encounter Contusion of arm, left, multiple sites Qualified Codes: S40.022A - Contusion of left upper arm, initial encounter Disposition: HOME, SELF-CARE Condition: Stable Departure-Patient Inst. Referrals: [facility]KKI (PCP) Primary Care Physician JEOVANNY STANFORD (Family) Primary Care Physician Add. Discharge Instructions: Tylenol ibuprofen as needed for pain 4% topical lidocaine with menthol to affected area as needed for pain as directed on package All discharge instructions reviewed with patient and/or family. Voiced understanding. JD NEW DO Dec 29, 2020 19:16
--- NOTE | 2020-12-29 19:39 | Diagnostic Imaging Report ---
PROCEDURE: CT head without contrast. TECHNIQUE: Multiple contiguous axial images were obtained through the brain without the use of intravenous contrast. Auto Exposure Controls were utilized during the CT exam to meet ALARA standards for radiation dose reduction. INDICATION: Status post fall in kitchen, weighted 30 minutes for help. CORRELATION: 12/13/2018 FINDINGS: There is no midline shift or mass effect. The ventricles and sulci are unremarkable. No evidence for acute intracranial hemorrhage, abnormal extra-axial fluid collections or cerebral edema is present. The basilar cisterns are unremarkable. The bony calvarium is intact. Probable cyst or polyp right maxillary sinus. No air-fluid level. IMPRESSION: Negative for acute traumatic abnormality of the head. Dictated by: Dictated on workstation # [id number]
--- NOTE | 2020-12-29 20:05 | Diagnostic Imaging Report ---
INDICATION: Post fall in kitchen, left-sided pain. TECHNIQUE: AP, lateral and spot imaging of the lumbar spine. CORRELATION STUDY: None. FINDINGS: Mild anterolisthesis of L5 on S1. Pars articularis defect is not excluded and somewhat suspect. Alignment otherwise anatomic apart from some straightening. Vertebral body heights and disc spaces overall are maintained. SI joints unremarkable. Cholecystectomy clips in the right upper quadrant of the abdomen. IMPRESSION: No radiographic evidence for acute bony abnormality of the lumbar spine. Mild grade 1 spondylolisthesis of L5 on S1 level may be attributed to underlying pars articularis defect at the L5 level. Dictated by: Dictated on workstation # [id number]
--- NOTE | 2020-12-29 20:09 | Diagnostic Imaging Report ---
INDICATION: Pain post fall. TECHNIQUE: AP, lateral and swimmers and odontoid views cervical spine. CORRELATION STUDY: None. FINDINGS: Straightening of reversal of the normal cervical lordosis. Alignment otherwise anatomic. Vertebral body heights maintained. Disc spaces appear maintained. Posterior elements in normal alignment. Odontoid is unremarkable with lateral masses of C1 and C2 appearing to be aligned. Prevertebral soft tissues unremarkable. IMPRESSION: Negative for acute findings of the cervical spine. Dictated by: Dictated on workstation # [id number]
--- NOTE | 2020-12-29 20:22 | Diagnostic Imaging Report ---
INDICATION: Fall. TECHNIQUE: Two views of the left forearm. CORRELATION STUDY: None. FINDINGS: There is a questionable triangular shaped bone density adjacent to the medial aspect of the proximal ulna at the elbow. Demonstrates a single view only. The remainder of the radius and ulna are otherwise unremarkable. Visualized portion of the wrist is unremarkable. Soft tissues are unremarkable. IMPRESSION: Questionable bone density at the proximal medial ulna. Correlate with symptoms. If further assessment is desired, dedicated elbow views recommended. Otherwise negative for acute findings of the left forearm. Dictated by: Dictated on workstation # [id number]
[2020-12-29 20:39] VITALS: BP 132/82
== END 2020-12-29 20:39 | disposition home or self-care (01) ==
LOC: EDUNIT# 18:44 → ER FS 18:45
DX: S30.0XXA Contusion of lower back and pelvis, initial encounter (principal); S40.022A Contusion of left upper arm, initial encounter; S09.90XA Unspecified injury of head, initial encounter; I10 Essential (primary) hypertension; E11.9 Type 2 diabetes mellitus without complications; W01.198A Fall on same level from slipping, tripping and stumbling with subsequent striking against other object, initial encounter
CPT/HCPCS: 70450; 72040; 72100